=== PATIENT | male | born 1940 | race Caucasian/White ===

== ENCOUNTER 2018-08-08 02:18 | Outpatient (CLI) | payer MEDICARE, BC, SELFPAY ==
[2018-08-08 11:22] LABS: HCT 33.6 % (40.0-50.0); HGB 11.2 g/dL (13.5-17.5); Mean Corp. HGB Concentration 33.3 g/dL (32.0-36.0); Mean Corpuscular Hemoglobin 28.7 pg (27.0-33.0); Mean Corpuscular Volume 86.2 fL (80-95); Mean Platelet Volume 11.6 fL (8.0-11.0); Platelet Count 100 x1000/uL (130-400); RBC Distribution Width 15.6 % (11.8-14.1); White Blood Cell Count 5.95 k/cumm (4.4-10.8)
[2018-08-08 11:34] LABS: ALT 35 U/L (12-78); AST 30 U/L (15-37); Albumin 3.4 g/dL (3.4-5.0); Alkaline Phosphatase 99 U/L (46-116); Anion Gap 9.5 mmol/L (3-11); BUN 44 mg/dL (7-18); Bilirubin, Total 0.6 mg/dL (0.2-1.0); CO2 26.5 mmol/L (21.0-32.0); CREATININE 2.27 mg/dL (0.70-1.30); Calcium 8.6 mg/dL (8.5-10.1); Chloride 106 mmol/L (98-107); Estimated GFR 28.06 (mL/min/1.73m2); Glucose 82 mg/dL (70-100); Sodium 142 mmol/L (136-145); Total Protein 6.8 g/dL (6.4-8.2); Uric Acid 5.5 mg/dL (3.5-7.2)
[2018-08-08 12:38] LABS: Hemoglobin A1C 6.6 % (4.5-6.2)
== END 2018-08-08 02:38 ==
PROVIDERS: PCP Family Medicine; Visit Provider Family Medicine
DX: E11.21 Type 2 diabetes mellitus with diabetic nephropathy (principal); I10 Essential (primary) hypertension; I50.9 Heart failure, unspecified; N28.9 Disorder of kidney and ureter, unspecified
CPT/HCPCS: 36415; 80053; 85027; 83036; 84550

== ENCOUNTER 2018-09-04 11:22 | Outpatient (REF) | payer MEDICARE, BC, SELFPAY ==
[2018-09-05 11:04] LABS: Campylobacter PCR SEE COMMENTS; Salmonella PCR SEE COMMENTS; Shiga Toxin PCR SEE COMMENTS; Shigella/Enteroinvasive Ecoli SEE COMMENTS
== END 2018-09-04 11:42 ==
LOC: LBN 11:22
PROVIDERS: PCP Family Medicine; Visit Provider Family Medicine
DX: R19.7 Diarrhea, unspecified (principal)
CPT/HCPCS: 87329; 87505; 87324

== ENCOUNTER 2018-11-05 02:03 | Outpatient (CLI) | payer MEDICARE, BC, SELFPAY ==
[2018-11-05 11:22] LABS: HCT 34.2 % (40.0-50.0); Mean Corp. HGB Concentration 32.2 g/dL (32.0-36.0); Mean Corpuscular Hemoglobin 28.4 pg (27.0-33.0); Mean Corpuscular Volume 88.1 fL (80-95); Mean Platelet Volume 11.5 fL (8.0-11.0); RBC 3.88 m/cumm (4.50-6.00); RBC Distribution Width 15.9 % (11.8-14.1); White Blood Cell Count 6.28 k/cumm (4.4-10.8)
[2018-11-05 11:46] LABS: Hemoglobin A1C 6.6 % (4.5-6.2)
[2018-11-05 11:50] LABS: ALT 38 U/L (12-78); AST 25 U/L (15-37); Albumin 3.2 g/dL (3.4-5.0); Alkaline Phosphatase 88 U/L (46-116); Anion Gap 7.8 mmol/L (3-11); BUN 45 mg/dL (7-18); Bilirubin, Total 0.5 mg/dL (0.2-1.0); CO2 26.2 mmol/L (21.0-32.0); CREATININE 2.69 mg/dL (0.70-1.30); Calcium 8.3 mg/dL (8.5-10.1); Chloride 107 mmol/L (98-107); Estimated GFR 23.07 (mL/min/1.73m2); Glucose 111 mg/dL (70-100); Potassium 4.4 mmol/L (3.5-5.1); Sodium 141 mmol/L (136-145); Total Protein 6.3 g/dL (6.4-8.2)
[2018-11-05 12:04] LABS: Platelet Count 91 x1000/uL (130-400)
== END 2018-11-05 02:23 ==
PROVIDERS: PCP Family Medicine; Visit Provider Family Medicine
DX: E11.40 Type 2 diabetes mellitus with diabetic neuropathy, unspecified (principal); I10 Essential (primary) hypertension; N18.3 Chronic kidney disease, stage 3 (moderate); D64.9 Anemia, unspecified
CPT/HCPCS: 36415; 80053; 85027; 83036

== ENCOUNTER 2019-03-13 08:05 | Outpatient (CLI) | payer MEDICARE, BC, SELFPAY ==
[2019-03-13 11:24] LABS: HCT 34.2 % (40.0-50.0); HGB 11.5 g/dL (13.5-17.5); Mean Corp. HGB Concentration 33.6 g/dL (32.0-36.0); Mean Corpuscular Volume 86.4 fL (80-95); Mean Platelet Volume 11.5 fL (8.0-11.0); Platelet Count 114 x1000/uL (130-400); RBC 3.96 m/cumm (4.50-6.00); RBC Distribution Width 15.6 % (11.8-14.1); White Blood Cell Count 6.47 k/cumm (4.4-10.8)
[2019-03-13 11:35] LABS: Hemoglobin A1C 6.6 % (4.5-6.2)
[2019-03-13 11:38] LABS: ALT 34 U/L (12-78); AST 29 U/L (15-37); Albumin 3.6 g/dL (3.4-5.0); Alkaline Phosphatase 104 U/L (46-116); Anion Gap 10.9 mmol/L (3-11); BUN 54 mg/dL (7-18); Bilirubin, Total 0.6 mg/dL (0.2-1.0); CO2 26.1 mmol/L (21.0-32.0); CREATININE 2.74 mg/dL (0.70-1.30); Calcium 8.7 mg/dL (8.5-10.1); Chloride 105 mmol/L (98-107); Estimated GFR 22.52 (mL/min/1.73m2); Glucose 158 mg/dL (70-100); Potassium 4.5 mmol/L (3.5-5.1); Sodium 142 mmol/L (136-145); Total Protein 6.5 g/dL (6.4-8.2)
== END 2019-03-13 08:25 ==
PROVIDERS: PCP Family Medicine; Visit Provider Family Medicine
DX: E11.40 Type 2 diabetes mellitus with diabetic neuropathy, unspecified (principal); E11.9 Type 2 diabetes mellitus without complications; K31.89 Other diseases of stomach and duodenum; K76.6 Portal hypertension
CPT/HCPCS: 36415; 80053; 85027; 83036

== ENCOUNTER 2019-03-18 00:55 | Outpatient (CLI) | payer MEDICARE, BC, SELFPAY ==
--- NOTE | 2019-03-18 10:23 | DI.RAD_ITS ---
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 The lungs are clear. The mediastinal structures and pleura appear intact. CONCLUSION: Normal chest.
== END 2019-03-18 01:15 ==
PROVIDERS: PCP Family Medicine; Visit Provider Family Medicine
DX: I27.20 Pulmonary hypertension, unspecified (principal); I85.00 Esophageal varices without bleeding
CPT/HCPCS: 71046

== ENCOUNTER 2019-04-01 08:38 | Outpatient (CLI) | payer MEDICARE, BC, SELFPAY ==
[2019-04-01 13:03] LABS: ALT 33 U/L (12-78); AST 25 U/L (15-37); Albumin 3.2 g/dL (3.4-5.0); Alkaline Phosphatase 101 U/L (46-116); Anion Gap 10.6 mmol/L (3-11); BUN 48 mg/dL (7-18); Bilirubin, Total 0.5 mg/dL (0.2-1.0); CO2 25.4 mmol/L (21.0-32.0); CREATININE 2.79 mg/dL (0.70-1.30); Calcium 8.2 mg/dL (8.5-10.1); Chloride 107 mmol/L (98-107); Estimated GFR 22.06 (mL/min/1.73m2); Glucose 178 mg/dL (70-100); Potassium 4.6 mmol/L (3.5-5.1); Sodium 143 mmol/L (136-145)
== END 2019-04-01 08:58 ==
PROVIDERS: PCP Family Medicine; Visit Provider Family Medicine
DX: N28.9 Disorder of kidney and ureter, unspecified (principal); N18.4 Chronic kidney disease, stage 4 (severe)
CPT/HCPCS: 36415; 80053

== ENCOUNTER 2019-05-25 02:00 | Outpatient (CLI) | payer MEDICARE, BC, SELFPAY ==
[2019-05-25 11:02] LABS: Hemoglobin A1C 6.8 % (4.5-6.2)
== END 2019-05-25 02:20 ==
PROVIDERS: PCP Family Medicine; Visit Provider Family Medicine
DX: E11.40 Type 2 diabetes mellitus with diabetic neuropathy, unspecified (principal)
CPT/HCPCS: 36415; 83036

== ENCOUNTER 2019-06-20 14:21 | Emergency (ER) | payer MEDICARE, BC, SELFPAY ==
[2019-06-20] VITALS (19 sets, daily range): BP systolic 161–190; BP diastolic 68–134; PULSE 70–89; RESP 14–26; TEMP 36.5–37.1; O2SAT 98–100
--- NOTE | 2019-06-20 14:31 | DI.CT_ITS ---
EXAM: CT CHEST/ABD/PEL WO CLINICAL HISTORY: abd pain, r/o acute abd process/AAA. TECHNIQUE: A noncontrast enhanced examination was performed. COMPARISON: CHEST ABD PELVIS WO CONTRAST from 02/24/2017 FINDINGS: Chest: No infiltrates are demonstrated in the lungs. Small regions of bibasilar atelectasis are dem onstrated. There is no evidence of a pneumothorax. There is a small bilateral pleural effusion. The heart is not enlarged. Coronary artery calcification is identified. Note is made of calcification i n the aortic valve annulus. There is no evidence of a pericardial effusion. There is a 16 mm hypode nse nodule in the right thyroid lobe. No acute bony abnormality is seen. The soft tissues are unrem arkable. There is no evidence of an aortic aneurysm. There is no evidence of lymphadenopathy. ABDOMEN AND PELVIS : The exam reveals a nodular appearing liver, consistent with cirrhosis. The patient is status post ch olecystectomy. There is no evidence of ductal dilatation. Pancreas is unremarkable. There is a sim ple cyst in the left kidney. There is no evidence of a laceration or perinephric hemorrhage. There are no obstructing stones. There is no evidence of hydronephrosis. There is no evidence of bowel ob struction or mucosal thickening. There is nothing to suggest an acute appendix. The bladder is unremarkable. The reproductive organs as visualized are unremarkable. There is no michela dence of free air or free fluid in the intraperitoneal space. No acute bony abnormality is seen. The soft tissues are unremarkable. There is no evidence of an aortic aneurysm. There is no evidence of lymphadenopathy. . IMPRESSION: CHEST: Small bilateral pleural effusions are demonstrated. There is no evidence of a pulmonary contusion. Th ere is no evidence of a mediastinal hematoma. There is no evidence of an acute fracture. ABDOMEN AND PELVIS: There is no evidence of visceral trauma on this noncontrast enhanced examination. There is no evidenc e of an acute fracture. There are findings consistent with cirrhosis and splenomegaly.
--- NOTE | 2019-06-20 14:38 | DI.CT_ITS ---
EXAM: CT HEAD CERVICAL SPINE WO CLINICAL HISTORY: blurry vision, headache, r/o acute cva. TECHNIQUE: The exam was performed according to the usual protocol without contrast enhancement. COMPARISON: HEAD WITHOUT CONTRAST from 03/09/2017 FINDINGS: HEAD: There is no evidence of an intra or extra-axial hemorrhage. There is no evidence of a mass or edema. The isabel-white matter differentiation is well maintained. The ventricles are unremarkable. There i s no skull fracture. The soft tissues are unremarkable. As visualized, no acute sinus abnormalities are identified. There is no evidence of a mastoid effusion. CERVICAL SPINE: The CT examination of the cervical spine reveals straightening of the normal cervical lordosis with f usion of the bodies of C5 through C7 demonstrated. Degenerative changes are identified at C2-C3 and C 3-C4. The prevertebral soft tissues are intact. IMPRESSION: HEAD: No evidence of an acute intracranial abnormality. CERVICAL SPINE: No evidence of an acute fracture or subluxation.
--- NOTE | 2019-06-20 14:40 | W.ED.GENAD ---
Discharge Plan Disposition Patient Disposition: HOME Condition: Improving Discharge Details Chief Complaint: GenMedical Clinical Impression: Neck pain, Leg pain, Abdominal pain Primary Care Provider: Ailyn Ha ED Provider: Nandini Meyers Home Meds and New Rx's Prescriptions: New lidocaine [Lidoderm] 5 % adhesive patch,medicated 1 patch TP DAILY Qty: 15 RF: 0 methocarbamol [Robaxin-750] 750 mg tablet 750 mg PO QID PRN (Reason: muscle spasm) Qty: 14 RF: 0 Continued carvedilol 25 mg tablet 12.5 mg PO BID Qty: 90 RF: 5 losartan 25 mg tablet 25 mg PO DAILY RF: 0 triamcinolone acetonide 0.1 % ointment 1 applic TP BID Qty: 80 RF: 4 hydromorphone [Dilaudid] 2 mg tablet 2 mg PO BID MDD 2 PRN (Reason: pain) Qty: 60 RF: 0 TEST STRIPS 1 EACH strip 1 strip Miscellaneous QID Qty: 300 RF: 4 (DME) blood-glucose meter 1 EACH misc 1 ea Miscellaneous AC & HS Qty: 1 RF: 0 aspirin 81 MG tablet,delayed release (DR/EC) 81 mg PO DAILY Qty: 100 RF: 12 cyanocobalamin (vitamin B-12) 3,000 MCG lozenge 3,000 mcg Sublingual DAILY RF: 0 (DME) lancets 1 EACH misc 1 ea Miscellaneous TID Qty: 400 RF: 12 (DME) lancing device with lancets [OneTouch Delica Lanc Device] 1 EACH kit 1 ea Miscellaneous AC ans HS Qty: 400 RF: 11 atorvastatin [Lipitor] 80 MG tablet 80 mg PO DAILY Qty: 90 RF: 12 clonidine HCl 0.1 MG tablet 0.1 mg PO BID Qty: 180 RF: 12 hydralazine 25 MG tablet 25 mg PO TID Qty: 270 RF: 12 gabapentin 600 mg tablet 600 mg PO Q4H Qty: 270 RF: 12 finasteride [Proscar] 5 mg tablet 5 mg PO DAILY Qty: 90 RF: 4 isosorbide mononitrate 60 mg tablet extended release 24 hr 120 mg PO DAILY Qty: 90 RF: 12 furosemide [Lasix] 40 mg tablet 80 mg PO DAILY Qty: 180 RF: 12 allopurinol 100 mg tablet 100 mg PO BID Qty: 180 RF: 4 tamsulosin [Flomax] 0.4 mg capsule 0.4 mg PO DAILY Qty: 90 RF: 4 Lantus Solostar U-100 Insulin 100 unit/mL (3 mL) insulin pen 60 unit Sub-Q BID Qty: 105 RF: 12 insulin lispro [Humalog KwikPen Insulin] 100 unit/mL insulin pen 14 - 20 unit Sub-Q AC & HS Qty: 60 RF: 6 (DME) Blood Glucose Test strip 1 ea Miscellaneous AC Qty: 100 RF: 11 (DME) lancets [OneTouch Delica Lancets] 33 gauge misc 1 ea Miscellaneous AC & HS Qty: 100 RF: 11 nitroglycerin [Nitrostat] 0.4 mg tablet, sublingual 0.4 mg Sublingual PRN Qty: 25 RF: 3 (DME) pen needle, diabetic 31 gauge x 1/3 needle 1 ea Sub-Q 6 timed day and prn Qty: 600 RF: 4 acyclovir 800 mg tablet 800 mg PO .COMPLEX Qty: 35 RF: 0 Vitamin B-6 50 MG capsule 50 mg PO DAILY RF: 0 acetaminophen [Tylenol] 325 MG tablet 325 - 650 mg PO Q4H PRN PRNRF: 0 albuterol sulfate [Ventolin HFA] 60 PUFF/INH HFA aerosol inhaler 2 puff Inhalation Q4H PRNRF: 0 (DME) OptiChamber Advantage 1 EACH spacer 1 ea Miscellaneous DIRECTED RF: 0 Discharge Instructions Instructions: Abdominal Pain (ED), Leg Pain (ED), Neck Pain (ED) Additional Instructions: Take your pain medications that you have at home as needed and directed. Stop taking the acyclovir. Valtrex was called into the pharn Take the muscle relaxers and Lidoderm patch as needed and directed. Follow-up with your primary care doctor this week for reevaluation. Return to the emergency department if you develop any worsening or new concerning symptoms. Discharge Data Discharge Date/Time-TO BE ENTERED AT DEPARTURE: 06/20/19 17:45 Discharge Physician: Nandini Meyers Medical Decision Making 3615 -- 79-year-old male with multiple medical problems including diabetes, aortic stenosis, coronary artery disease, hyperlipidemia, hypertension, subdural hematoma presents with sudden onset of neck pain, blurry vision, abdominal pain that started 1 hour ago while sitting at home. 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 Blood pressure hypertensive. 160/100s. EKG notes a rate of 81, sinus with T wave inversion in lateral leads without acute ischemic changes and not significantly change compared to previous but with significant artifact. Abdomen soft but diffusely tender. He appears significantly uncomfortable. Differential diagnosis includes AAA rupture, dissection, ACS, pneumonia, likely abnormality, arrhythmia. Will place an IV, give small bolus IV fluids, check screening labs, CT head, neck and chest abdomen pelvis. Due to chronic kidney disease we will hold on IV contrast. 1745 -- Patient feels much better after morphine. Labs and imaging reviewed and no significant acute findings. He has a history of chronic kidney disease which is near baseline. BNP 1223. Urinalysis negative for infection. CT head negative. CT cervical spine notes chronic degenerative disc disease. He is moving all of his extremities and has no focal deficits. CT chest notes small bilateral pleural effusions, CT abdomen and pelvis notes a normal caliber aorta without any other acute findings. Discussed with patient that due to his wide range of symptoms, difficult to determine the exact etiology. Upon review of acyclovir, this could possibly be a contributing factor to his range of symptoms. He has a history of chronic neck pain and left leg pain but states this became much worse today. Patient states he feels good to go home. A Lidoderm patch was placed to his neck and he was also given a dose of Robaxin. He has taken Valtrex before without any reaction. A prescription for Valtrex was called into [facility] in [place]. He was advised to stop the acyclovir and if symptoms return, to fill the Valtrex. He is advised to follow-up with his primary care doctor and to return to the ER with any concerns. Medical Records Medical records reviewed: Yes I reviewed the patient's medical records. Lab Data Lab results reviewed: Yes I reviewed the patient's lab results. Labs: Laboratory Tests Range/Units 06/20/19 06/20/19 06/20/19 14:30 14:30 14:30 WBC (4.4-10.8) k/cumm 6.32 RBC (4.50-6.00) m/cumm 3.44 L Hgb (13.5-17.5) g/dL 10.2 L Hct (40.0-50.0) % 29.5 L MCV (80-95) fL 85.8 MCH (27.0-33.0) pg 29.7 MCHC (32.0-36.0) g/dL 34.6 RDW (11.8-14.1) % 15.5 H Plt Count (130-400) x1000/uL 103 L MPV (8.0-11.0) fL 10.7 Immature Gran % 0.3 Neutrophils % 73.3 Lymphocytes % 17.2 Monocytes % 7.0 Eosinophils % 1.7 Basophils % 0.5 Absolute Neutrophils (1.2-6.7) k/cumm 4.63 Absolute Lymphocytes (1.2-3.4) k/cumm 1.09 L Absolute Monocytes (0.11-0.7) k/cumm 0.44 Absolute Eosinophils (0.0-0.7) k/cumm 0.11 Absolute Basophils (0.0-0.2) k/cumm 0.03 Sodium (136-145) mmol/L 140 Potassium (3.5-5.1) mmol/L 3.9 Chloride (98-107) mmol/L 106 Carbon Dioxide (21.0-32.0) mmol/L 23.2 Anion Gap (3-11) mmol/L 10.8 BUN (7-18) mg/dL 51 H Creatinine (0.70-1.30) mg/dL 2.91 H Estimated GFR/1.73 m2 (mL/min/1.73m2) 21.01 Glucose (70-100) mg/dL 189 H Calcium (8.5-10.1) mg/dL 7.8 L Magnesium (1.8-2.4) mg/dL 1.3 L Total Bilirubin (0.2-1.0) mg/dL 0.6 AST (15-37) U/L 23 ALT (16-63) U/L 32 Alkaline Phosphatase (46-116) U/L 95 Troponin I (0.00-0.06) ng/mL < 0.05 NT-Pro-B Natriuret Pep ( - 299) pg/mL 1223 H Total Protein (6.4-8.2) g/dL 7.0 Albumin (3.4-5.0) g/dL 3.5 Lipase (73-393) U/L Urine Color (Yellow) Urine Clarity (Clear) Urine pH (5-8) Ur Specific [place] (1.005-1.025) Urine Protein (Negative) mg/dL Urine Ketones (Negative) mg/dL Urine Blood (Negative) Urine Nitrite (Negative) Urine Bilirubin (Negative) Urine Urobilinogen (Up TO 0.2) EU/dL Ur Leukocyte Esterase (Negative) Urine RBC (0-2) Urine WBC (0-5) HPF Ur Epithelial Cells (Negative) HPF Urine Crystals (Negative) HPF Urine Bacteria (Negative) HPF Urine Casts (Negative) LPF Urine Mucus (Negative) Urine Other (Negative) Ur Culture Indicated? Urine Glucose (Negative) mg/dL Range/Units 06/20/19 06/20/19 14:30 15:50 WBC (4.4-10.8) k/cumm RBC (4.50-6.00) m/cumm Hgb (13.5-17.5) g/dL Hct (40.0-50.0) % MCV (80-95) fL MCH (27.0-33.0) pg MCHC (32.0-36.0) g/dL RDW (11.8-14.1) % Plt Count (130-400) x1000/uL MPV (8.0-11.0) fL Immature Gran % Neutrophils % Lymphocytes % Monocytes % Eosinophils % Basophils % Absolute Neutrophils (1.2-6.7) k/cumm Absolute Lymphocytes (1.2-3.4) k/cumm Absolute Monocytes (0.11-0.7) k/cumm Absolute Eosinophils (0.0-0.7) k/cumm Absolute Basophils (0.0-0.2) k/cumm Sodium (136-145) mmol/L Potassium (3.5-5.1) mmol/L Chloride (98-107) mmol/L Carbon Dioxide (21.0-32.0) mmol/L Anion Gap (3-11) mmol/L BUN (7-18) mg/dL Creatinine (0.70-1.30) mg/dL Estimated GFR/1.73 m2 (mL/min/1.73m2) Glucose (70-100) mg/dL Calcium (8.5-10.1) mg/dL Magnesium (1.8-2.4) mg/dL Total Bilirubin (0.2-1.0) mg/dL AST (15-37) U/L ALT (16-63) U/L Alkaline Phosphatase (46-116) U/L Troponin I (0.00-0.06) ng/mL NT-Pro-B Natriuret Pep ( - 299) pg/mL Total Protein (6.4-8.2) g/dL Albumin (3.4-5.0) g/dL Lipase (73-393) U/L 239 Urine Color (Yellow) Yellow Urine Clarity (Clear) Clear Urine pH (5-8) 7.0 Ur Specific [place] (1.005-1.025) 1.020 Urine Protein (Negative) mg/dL 100 H Urine Ketones (Negative) mg/dL Negative Urine Blood (Negative) Trace-lysed H Urine Nitrite (Negative) Negative Urine Bilirubin (Negative) Negative Urine Urobilinogen (Up TO 0.2) EU/dL 0.2 Ur Leukocyte Esterase (Negative) Negative Urine RBC (0-2) 0-2 Urine WBC (0-5) HPF Negative Ur Epithelial Cells (Negative) HPF Rare Urine Crystals (Negative) HPF Negative Urine Bacteria (Negative) HPF Rare Urine Casts (Negative) LPF Negative Urine Mucus (Negative) Negative Urine Other (Negative) Negative Ur Culture Indicated? No Urine Glucose (Negative) mg/dL 100 ECG Data Attestation: I personally reviewed and interpreted this ECG (s) as follows: Interpretation: Rate of 81, sinus, first-degree block. T wave inversion in V5 and V6. [place] 266. No acute ST elevation or depression. HPI General Mode of arrival: ambulatory. Date/Time Provider Initiated Documentation: 06/20/19 14:31. Limitations to Documentation: no limitations. Information obtained by: patient. HPI Narrative: Patient is a 79-year-old male with a history of diabetes, CAD, hyperlipidemia, hypertension, subdural hematoma, chronic neck pain with history of cervical fusion, chronic left leg pain status post back surgery and peripheral neuropathy who presents with sudden onset of neck pain, left leg pain and abdominal pain that started while laying down taking a nap. He states he has had chronic back pain for years but states it became much worse while he was laying down. He denies any pain radiating to his bilateral arms. He also has a history of chronic left leg pain and neuropathy and states this became much worse 1 hour ago as well. He states he uses a cane for ambulation as needed. 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 He also states that he had blurry vision when his neck pain and left leg pain started but states is now resolved. He also admits to sharp periumbilical abdominal pain that started within the hour. He denies any vomiting, diarrhea or urinary symptoms. He denies any fever, chest pain, shortness of breath, headache or dizziness. He denies any recent injury. Related Data Home Medications Medication Instructions Recorded Confirmed blood-glucose meter #1 ea 01/10/16 05/26/19 Vitamin B-6 50 mg PO DAILY 02/24/17 06/20/19 acetaminophen [Tylenol] 325 - 650 mg PO Q4H PRN PRN tab 03/05/17 06/20/19 aspirin 81 mg PO DAILY #100 tab-cap 03/18/17 06/20/19 cyanocobalamin (vitamin B-12) 3,000 mcg SUBLINGUAL DAILY evin 10/15/17 06/20/19 lancets #400 ea 01/30/18 05/26/19 lancing device with lancets #400 kit 01/30/18 05/26/19 [OneTouch Delica Lanc Device] OptiChamber Advantage kit 03/11/18 05/26/19 albuterol sulfate [Ventolin HFA] 2 puff INHALATION Q4H PRN inh 03/11/18 06/20/19 atorvastatin [Lipitor] 80 mg PO DAILY #90 tab-cap 05/28/18 06/20/19 clonidine HCl 0.1 mg PO BID #180 tab-cap 05/28/18 06/20/19 hydralazine 25 mg PO TID #270 tab-cap 05/28/18 06/20/19 gabapentin 600 mg tablet 600 mg PO Q4H #270 tab-cap 08/06/18 06/20/19 triamcinolone acetonide 0.1 % 1 applic TP BID #80 gm 08/11/18 06/20/19 topical ointment finasteride 5 mg tablet 5 mg PO DAILY #90 tab-cap 08/14/18 06/20/19 isosorbide mononitrate 60 mg 120 mg PO DAILY #90 tab-cap 08/14/18 06/20/19 tablet,extended release 24 hr furosemide 40 mg tablet 80 mg PO DAILY #180 tab-cap 10/25/18 06/20/19 carvedilol 25 mg tablet 12.5 mg PO BID #90 tab-cap 11/11/18 06/20/19 allopurinol 100 mg tablet 100 mg PO BID #180 tab-cap 12/08/18 06/20/19 tamsulosin 0.4 mg capsule 0.4 mg PO DAILY #90 tab-cap 12/08/18 06/20/19 insulin glargine 100 unit/mL (3 60 unit SUB-Q BID #105 ml 01/27/19 06/20/19 mL) subcutaneous pen insulin lispro 100 unit/mL 14 - 20 unit SUB-Q AC & HS #60 ml 01/27/19 06/20/19 subcutaneous pen blood sugar diagnostic #100 strip 03/02/19 05/26/19 lancets 33 gauge #100 each 03/02/19 05/26/19 nitroglycerin 0.4 mg sublingual 0.4 mg SUBLINGUAL PRN #25 tab-cap 03/18/19 06/20/19 tablet losartan 25 mg tablet 25 mg PO DAILY 03/26/19 06/20/19 pen needle, diabetic 31 gauge x #600 ea 04/23/19 05/26/19/ hydromorphone 2 mg tablet 2 mg PO BID PRN #60 tab-cap MDD 2 05/26/19 06/20/19 acyclovir 800 mg tablet 800 mg PO .COMPLEX #35 tab 06/19/19 06/20/19 lidocaine [Lidoderm] 1 patch TP DAILY #15 each 06/20/19 methocarbamol [Robaxin-750] 750 mg PO QID PRN #14 tab 06/20/19 Previous Rx's Medication Instructions Recorded acetaminophen [Tylenol] 325 - 650 mg PO Q4H PRN PRN tab 03/05/17 lancets #400 ea 01/30/18 lancing device with lancets #400 kit 01/30/18 [OneTouch Delica Lanc Device] OptiChamber Advantage kit 03/11/18 albuterol sulfate [Ventolin HFA] 2 puff INHALATION Q4H PRN inh 03/11/18 atorvastatin [Lipitor] 80 mg PO DAILY #90 tab-cap 05/28/18 clonidine HCl 0.1 mg PO BID #180 tab-cap 05/28/18 hydralazine 25 mg PO TID #270 tab-cap 05/28/18 gabapentin 600 mg tablet 600 mg PO Q4H #270 tab-cap 08/06/18 triamcinolone acetonide 0.1 % 1 applic TP BID #80 gm 08/11/18 topical ointment finasteride 5 mg tablet 5 mg PO DAILY #90 tab-cap 08/14/18 isosorbide mononitrate 60 mg 120 mg PO DAILY #90 tab-cap 08/14/18 tablet,extended release 24 hr furosemide 40 mg tablet 80 mg PO DAILY #180 tab-cap 10/25/18 carvedilol 25 mg tablet 12.5 mg PO BID #90 tab-cap 11/11/18 allopurinol 100 mg tablet 100 mg PO BID #180 tab-cap 12/08/18 tamsulosin 0.4 mg capsule 0.4 mg PO DAILY #90 tab-cap 12/08/18 insulin glargine 100 unit/mL (3 60 unit SUB-Q BID #105 ml 01/27/19 mL) subcutaneous pen insulin lispro 100 unit/mL 14 - 20 unit SUB-Q AC & HS #60 ml 01/27/19 subcutaneous pen blood sugar diagnostic #100 strip 03/02/19 lancets 33 gauge #100 each 03/02/19 nitroglycerin 0.4 mg sublingual 0.4 mg SUBLINGUAL PRN #25 tab-cap 03/18/19 tablet pen needle, diabetic 31 gauge x #600 ea 04/23/19 1/3 hydromorphone 2 mg tablet 2 mg PO BID PRN #60 tab-cap MDD 2 05/26/19 acyclovir 800 mg tablet 800 mg PO .COMPLEX #35 tab 06/19/19 lidocaine [Lidoderm] 1 patch TP DAILY #15 each 06/20/19 methocarbamol [Robaxin-750] 750 mg PO QID PRN #14 tab 06/20/19 Allergies Allergy/AdvReac Type Severity Reaction Status Date / Time amlodipine Allergy Severe SOB, Chest Unverified 06/20/19 14:31 Pain niacin Allergy Intermediate HIVES Unverified 06/20/19 14:31 ciprofloxacin Allergy Mild SKIN RASH Unverified 06/20/19 14:31 Tetanus Vaccines and Toxoid Allergy Mild LARGE Unverified 06/20/19 14:31 [Tetanus Vaccines \E&E\ LOCAL Toxoid] REACTION nickel Allergy Unknown Unverified 06/20/19 14:31 indomethacin AdvReac Severe GI DISTRESS Unverified 06/20/19 14:31 General Stated Complaint: GenMedical EVELYN: 2 Review of Systems Constitutional Constitutional: Reports as per HPI, Denies chills and Denies fever(s) Eyes Eyes: Reports blurry vision ENT Ears, Nose, Mouth, and Throat: Denies dizziness, Reports neck pain, Denies sore throat and Denies throat swelling Cardiovascular Cardiovascular: Denies chest pain and Denies dyspnea Respiratory Respiratory: Denies cough and Denies dyspnea Gastrointestinal Gastrointestinal: Reports abdominal pain, Denies diarrhea and Denies vomiting Genitourinary Genitourinary: Denies hematuria and Denies dysuria Musculoskeletal Musculoskeletal: Denies back pain, Reports neck pain and Denies numbness Integumentary/Breasts Skin/Breast: Denies lesions and Denies rash Neurologic Neurologic: Denies dizziness, Denies focal weakness and Denies numbness Allergic/Immunologic Allergic/Immunologic: Denies throat swelling REPLACED BY [facility] Medical History Abdominal pain, generalized (Chronic 08/29/04) 2004-CT scan neg. U/S-fatty liver, enlarged spleen; EGD-heg. HPylori, neg. 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) Chronic hepatitis (Acute 11/03/12) Chronic pain disorder (Acute 08/30/15) CONTRACT 01/19/16 Chronic renal insufficiency, stage III (moderate) (Chronic 04/16/16) Cirrhosis of liver (Chronic 09/28/13) YAO-RELATED 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) Diabetes mellitus with neuropathy (Chronic 08/17/14) Diabetic polyneuropathy associated with type 2 diabetes mellitus (Chronic 03/05/16) Diabetic retinopathy (Chronic 02/14/15) 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) Esophageal varices without bleeding (Chronic 07/09/13) Frequent nosebleeds (Chronic 10/15/17) Gout (Chronic 05/20/12) History of bladder cancer (Acute 10/29/16) Hyperlipidemia (Chronic) Hypermetropia (Chronic 11/24/12) Hypertension (Chronic) Hypertensive retinopathy (Chronic 11/24/12) Incipient cataract (Chronic 11/24/12) Kidney disease (Chronic) renal insuff.; CREATININE 1.3 Knee pain (Chronic) LEFT Left hip pain (Chronic 12/27/16) Lumbago (Chronic) herniation by MRI; S/P discectomy L5; left leg pain continues/numbness Lumbosacral radiculopathy at L5 (Chronic 05/20/17) Microscopic hematuria (Chronic 10/29/16) Neck pain (Chronic) neck fusion C5-6-7; s/p fall on the ice with significant neck injury, paralysis for a short time; short term memory loss; decreased right arm strength Re-injured 02/13 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) Peripheral edema (Chronic 03/29/16) Polyp of colon (Chronic 08/29/99) hyperplastic polyp; per colonoscopy 2009-Tubular adenoma and hyperplastic polyp Portal hypertensive gastropathy (Chronic 07/09/13) Presbyopia (Chronic 11/24/12) Primary malignant neoplasm of bladder (Chronic 01/20/08) atypical urothelial cells on urine 01/05; S/P 2 OPERATIONS; VCG THERAPY Renal colic on right side (Chronic 12/25/13) Subdural hematoma (Chronic 02/24/17) Tear film insufficiency (Chronic 11/24/12) Thyroid nodule (Chronic 03/18/17) 1.6cm right Surgical History ACHILLOTENOTOMY 1988 LEFT 1998 RIGHT Bladder Surgery [address] VÁSQUEZ Cholecystectomy (08/05/12) Colonoscopy - MAC 08/09 DISC SURGERY () L5 [place]GD - [place]29[place] [facility] [place] [facility] [place]inal Fusion (~1992) C5, 6-7 Stent placement (~2007) X [address] JANICE KENDALL Family History Mother Myocardial infarction Father Stroke Sister Myocardial infarction Stroke Brother Myocardial infarction Brother No problems noted. Social History Smoking/Tobacco Use Status: Former Tobacco Use Drug use: Current Sobriety What type of physical activity do you participate in: none Do you feel safe in your relationship?: Yes Exam Const General: cooperative, uncomfortable and no acute distress HENMT Head: normal to inspection Face and sinus: normal facial exam Eyes General: appearance normal, both eyes and all related structures Pupils: PERRL EOM: EOM intact bilaterally Neck Neck: normal visual inspection and No submandibular swelling Lymphatic: no lymphadenopathy noted Chest Chest: normal inspection of the chest and no tenderness Resp Effort & Inspection: normal respiratory effort and able to speak in complete sentences Auscultation: clear to auscultation bilaterally Cardio Rate: regular rate Rhythm: regular rhythm GI Inspection: obesity Palpation: soft, not firm, not rigid and tender (throughout) Auscultation: hypoactive bowel sounds Skin General skin exam: no rashes or lesions noted Neuro General: alert, awake and oriented x3 Cranial Nerves: CN's II-XI intact bilaterally Cognition: normal cognition Speech: speech normal Motor: muscle tone normal throughout and strength 5/5 throughout Sensory Exam: no sensory deficits noted Extrem General: normal to inspection, full ROM, normal capillary refill, no calf tenderness bilaterally and no edema Psych Appearance: grossly normal Mental Status: mental status grossly normal Speech and Movement: speech and movement normal Affect: normal affect Course Vital Signs Vital signs: Vital Signs Temperature 98.8 F 06/20/19 14:26 Pulse 80 06/20/19 14:26 Respiratory Rate 23 06/20/19 14:26 Blood Pressure 190/83 H 06/20/19 14:26 Pulse Oximetry 99 06/20/19 14:26 Temperature 98.8 F 06/20/19 14:26 Temperature Source Skin 06/20/19 14:26 Pulse 80 06/20/19 14:26 Respiratory Rate 23 06/20/19 14:26 Respiratory Effort Labored 06/20/19 14:26 Blood Pressure 190/83 H 06/20/19 14:26 Blood Pressure Position Supine 06/20/19 14:26 Pulse Oximetry 99 06/20/19 14:26 Oxygen Delivery Method Room Air 06/20/19 14:26 Oxygen Flow Rate 0 06/20/19 14:26
[2019-06-20 14:43] LABS: Abs Immature Grans 0.02 k/cumm (0.0-0.09); Absolute Basophil Count 0.03 k/cumm (0.0-0.2); Absolute Eosinophil Count 0.11 k/cumm (0.0-0.7); Absolute Lymphocyte Count 1.09 k/cumm (1.2-3.4); Absolute Monocyte Count 0.44 k/cumm (0.11-0.7); Absolute Neutrophil Count 4.63 k/cumm (1.2-6.7); Basophils % 0.5; Eosinophils % 1.7; HCT 29.5 % (40.0-50.0); HGB 10.2 g/dL (13.5-17.5); Immature Grans % 0.3; Lymphocytes % 17.2; Mean Corp. HGB Concentration 34.6 g/dL (32.0-36.0); Mean Corpuscular Hemoglobin 29.7 pg (27.0-33.0); Mean Corpuscular Volume 85.8 fL (80-95); Mean Platelet Volume 10.7 fL (8.0-11.0); Neutrophils % 73.3; Platelet Count 103 x1000/uL (130-400); RBC 3.44 m/cumm (4.50-6.00); RBC Distribution Width 15.5 % (11.8-14.1); White Blood Cell Count 6.32 k/cumm (4.4-10.8)
[2019-06-20 14:54] LABS: Lipase 239 U/L (73-393)
[2019-06-20 15:00] LABS: ALT 32 U/L (16-63); AST 23 U/L (15-37); Albumin 3.5 g/dL (3.4-5.0); Alkaline Phosphatase 95 U/L (46-116); Anion Gap 10.8 mmol/L (3-11); BUN 51 mg/dL (7-18); Bilirubin, Total 0.6 mg/dL (0.2-1.0); CO2 23.2 mmol/L (21.0-32.0); CREATININE 2.91 mg/dL (0.70-1.30); Calcium 7.8 mg/dL (8.5-10.1); Chloride 106 mmol/L (98-107); Estimated GFR 21.01 (mL/min/1.73m2); Glucose 189 mg/dL (70-100); Magnesium 1.3 mg/dL (1.8-2.4); Potassium 3.9 mmol/L (3.5-5.1); Sodium 140 mmol/L (136-145)
[2019-06-20 15:01] LABS: Troponin I < 0.05 ng/mL (0.00-0.06)
[2019-06-20 15:06] LABS: NT-proBNP 1223 pg/mL
[2019-06-20] MEDS: Normal Saline 250 ML IV (15:17)
--- NOTE | 2019-06-20 15:36 | DI.VRAD_ITS ---
PROCEDURE INFORMATION: Exam: CT Head Without Contrast Exam date and time: 06/20/2019 2:49 PM Clinical history: 79 years old, male; Other: Blurry vision, headache, R/O acute CVA TECHNIQUE: Imaging protocol: Computed tomography of the head without contrast. Radiation optimization: All CT scans at this facility use at least one of these dose optimization techniques: automated exposure control; mA and/or kV adjustment per patient size (includes targeted exams where dose is matched to clinical indication); or iterative reconstruction. COMPARISON: CT HEAD WITHOUT CONTRAST 03/09/2017 2:40 AM FINDINGS: Brain: Age-related atrophy and chronic white matter ischemic changes, with no evidence of an acute intracranial abnormality. Mendiola-white differentiation is maintained. No evidence of acute territorial infarction. No mass effect or midline shift. No hemorrhage. Ventricles: Unremarkable. No hydrocephalus. Bones/joints: Unremarkable. No acute fracture. Sinuses: Unremarkable as visualized. No acute sinusitis. Mastoid air cells: Unremarkable as visualized. No mastoid effusion. Soft tissues: Unremarkable. Vasculature: Bilateral intracranial arterial wall calcifications. IMPRESSION: No acute findings. Specifically, no evidence for hemorrhagic or ischemic infarction. PROCEDURE INFORMATION: Exam: CT Cervical Spine Without Contrast Exam date and time: 06/20/2019 2:49 PM Clinical history: 79 years old, male; Other: Blurry vision, headache, R/O acute CVA TECHNIQUE: Imaging protocol: Computed tomography images of the cervical spine without contrast. Radiation optimization: All CT scans at this facility use at least one of these dose optimization techniques: automated exposure control; mA and/or kV adjustment per patient size (includes targeted exams where dose is matched to clinical indication); or iterative reconstruction. COMPARISON: CT HEAD WITHOUT CONTRAST 03/09/2017 2:40 AM FINDINGS: Vertebrae: No fracture or dislocation. 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 Bony fusion of the C2/3 left facets. Bony fusion of the C5-C7 vertebral bodies. Discs/Spinal canal/Neural foramina: Multilevel degenerative disc disease and facet hypertrophy. C3-4 is the most significantly affected level. Annular disc bulge with uncal vertebral spurring and right paracentral disc protrusion (which completely effaces the right lateral third of the central canal) combined with facet hypertrophy and ligamentum flavum thickening produce: Moderately-severe central canal and bilateral neural foraminal stenosis. C6-7 is the second most significantly affected level with a moderately-severe central canal stenosis and moderate bilateral neural foraminal stenosis. Less significant stenosis at the other cervical levels. Soft tissues: Unremarkable. Lungs: Lung apices are normal. IMPRESSION: Multilevel degenerative disc disease and facet hypertrophy. C3-4 is the most significantly affected level with moderately-severe central canal and bilateral neural foraminal stenosis. Dictated and Authenticated by: Jacque Winchester MD. Ordering:TIAN Delatorre MD
--- NOTE | 2019-06-20 15:56 | DI.VRAD_ITS ---
PROCEDURE INFORMATION: Exam: CT Chest Without Contrast Exam date and time: 06/20/2019 2:35 PM Clinical history: 79 years old, male; Other: Abd pain, R/O aute abd process/aaa TECHNIQUE: Imaging protocol: Computed tomography of the chest without contrast. Radiation optimization: All CT scans at this facility use at least one of these dose optimization techniques: automated exposure control; mA and/or kV adjustment per patient size (includes targeted exams where dose is matched to clinical indication); or iterative reconstruction. COMPARISON: CT Chest without contrast 04/07/2018 FINDINGS: Thyroid: Stable 1 cm hypodense nodule in the lower right lobe of the thyroid gland. Lungs: See Pleural Space Finding. Pleural space: Small low density bilateral pleural effusions with minimal adjacent atelectasis. No suspicious infiltrate. No consolidation. Heart: Heart is normal in size. Aortic valve and coronary artery calcifications. No pericardial effusion. Pulmonary arteries: The pulmonary arteries demonstrate stable mild central enlargement, consistent with mild pulmonary hypertension. Aorta: Aorta is normal caliber with scattered wall calcifications. Lymph nodes: Unremarkable. No enlarged lymph nodes. Bones/joints: Multilevel degenerative changes. No acute bony abnormality. Soft tissues: Unremarkable. IMPRESSION: 1. Small bilateral pleural effusions. 2. Coronary artery disease. 3. Stable 1 cm hypodense nodule in the lower right lobe of the thyroid gland. PROCEDURE INFORMATION: Exam: CT Abdomen and Pelvis Without Contrast Exam date and time: 06/20/2019 2:35 PM Clinical history: 79 years old, male; Other: Abd pain, R/O aute abd process/aaa TECHNIQUE: Imaging protocol: Computed tomography of the abdomen and pelvis without contrast. Radiation optimization: All CT scans at this facility use at least one of these dose optimization techniques: automated exposure control; mA and/or kV adjustment per patient size (includes targeted exams where dose is matched to clinical indication); or iterative reconstruction. COMPARISON: CT ABD PELVIS WO CONTRAST 05/11/2014 2:32 PM FINDINGS: Liver: Liver is enlarged, but less so, measuring 19 cm in length on today's exam (22 cm on the previous exam). Stable subcentimeter cyst in the central liver (axial series 2 image 65). Gallbladder and bile ducts: Cholecystectomy. Pancreas: Unremarkable. No ductal dilation. Spleen: Unremarkable.No splenomegaly. Adrenals: Unremarkable. No mass. Kidneys and ureters: Very mild right renal peripelvic fat stranding. Nonobstructive punctate calcifications in both kidneys. Stable small left renal cyst. No hydronephrosis, hydroureter or discrete intraureteral calcification bilaterally. Stomach and bowel: Unremarkable. No obstruction. No mucosal thickening. Appendix: No evidence of appendicitis. Intraperitoneal space: Unremarkable. No free air. No fluid collection. Vasculature: Aorta is normal caliber with diffuse wall calcifications. Lymph nodes: Unremarkable. No enlarged lymph nodes. Bladder: Unremarkable as visualized. Reproductive: Enlarged prostate gland. Bones/joints: Multilevel degenerative changes. No acute bony abnormality. Soft tissues: Unremarkable. IMPRESSION: 1. Aorta is normal caliber with diffuse wall calcifications. 2. Very mild right renal peripelvic fat stranding. This is nonspecific and may represent infection or inflammation. Please, correlate with urinalysis. 3. Nonobstructive punctate calcifications in both kidneys. 4. Decreased enlargement of the liver. Dictated and Authenticated by: Jacque Winchester MD. Ordering:TIAN Delatorre MD
[2019-06-20 16:23] LABS: Bilirubin Negative (Negative); Blood Trace-lysed (Negative); Clarity Clear (Clear); Glucose 100 mg/dL (Negative); Ketones Negative (Negative); Leukocyte Esterase Negative (Negative); Nitrite Negative (Negative); Urobilinogen 0.2 EU/dL (Up TO 0.2)
[2019-06-20 16:29] LABS: Bacteria Rare HPF (Negative); C & S Indicated? No; Casts Negative LPF (Negative); Crystals Negative HPF (Negative); Epithelial Cells Rare HPF (Negative); Mucus Negative (Negative); Other Cells Negative (Negative); RBC 0-2 (0-2); WBC Negative HPF (0-5)
[2019-06-20] MEDS: Methocarbamol 500 MG TAB PO (17:29)
[2019-06-20] MEDS: Lidocaine 5% Patch 1 PATCH TP (17:29)
== END 2019-06-20 17:45 | disposition home or self-care (01) ==
PROVIDERS: Emergency Provider Physician Assistant; PCP Family Medicine
DX: M54.2 Cervicalgia (principal); R10.9 Unspecified abdominal pain; N18.9 Chronic kidney disease, unspecified; J90 Pleural effusion, not elsewhere classified; I12.9 Hypertensive chronic kidney disease with stage 1 through stage 4 chronic kidney disease, or unspecified chronic kidney disease; E11.22 Type 2 diabetes mellitus with diabetic chronic kidney disease; Z79.4 Long term (current) use of insulin
CPT/HCPCS: 36415; 71250; 80053; 83690; 93005; 96361; 96374; 99285; 70450; 72125; 74176; 81003; 81015; 83735; 83880; 84484; 85025; 93010

== ENCOUNTER 2019-07-24 02:21 | Outpatient (RCR) | payer MEDICARE, BC, SELFPAY ==
[2019-07-17] VITALS (7 sets, daily range): BP systolic 143–169; BP diastolic 66–77; PULSE 66–71; RESP 18–19; TEMP 36.4–36.5; O2SAT 96–99
[2019-07-17] MEDS: IRON SUCROSE COMPLEX 300 MG in Normal Saline 250 ML 176.667 MG IVPB (12:18)
[2019-07-17] MEDS: Normal Saline Flush 10 ML SYR IVP (12:18)
[2019-07-24] MEDS: Normal Saline Flush 10 ML SYR IVP (12:19)
[2019-07-24] MEDS: IRON SUCROSE COMPLEX 300 MG in Normal Saline 250 ML 176.667 MG IVPB (12:19)
== END 2019-07-30 23:59 | disposition home or self-care (01) ==
LOC: INF 02:21
PROVIDERS: PCP Family Medicine; Visit Provider Family Medicine
DX: N18.4 Chronic kidney disease, stage 4 (severe) (principal); D63.1 Anemia in chronic kidney disease; D50.9 Iron deficiency anemia, unspecified
CPT/HCPCS: 96365; 96366; J1756

== ENCOUNTER 2019-07-31 01:23 | Outpatient (RCR) | payer MEDICARE, BC, SELFPAY ==
[2019-07-31] MEDS: IRON SUCROSE COMPLEX 300 MG in Normal Saline 250 ML 176.667 MG IVPB (12:06)
[2019-07-31] MEDS: Normal Saline Flush 10 ML SYR IVP (12:07)
== END 2019-08-29 23:59 | disposition home or self-care (01) ==
LOC: INF 01:23
PROVIDERS: PCP Family Medicine; Visit Provider Family Medicine
DX: N18.4 Chronic kidney disease, stage 4 (severe) (principal); D63.1 Anemia in chronic kidney disease; D50.9 Iron deficiency anemia, unspecified
CPT/HCPCS: 96365; 96366; J1756

== ENCOUNTER 2019-08-25 17:51 | Observation (INO) | payer MEDICARE, BC, SELFPAY ==
[2019-08-25] VITALS (80 sets, daily range): BP systolic 149–217; BP diastolic 55–132; PULSE 67–94; RESP 10–32; TEMP 36.3–38.6; O2SAT 84–100
--- NOTE | 2019-08-25 17:56 | DI.RAD_ITS ---
EXAM: XR PORTABLE CHEST AP CLINICAL HISTORY: pain TECHNIQUE: The study was performed according to the usual protocol. COMPARISON: XR CHEST 2V PA LATERAL from 03/18/2019 FINDINGS: There are changes of COPD and pulmonary scarring. No gross interval change in appearance in compariso n with prior studies including March 18. Slight prominence of pulmonary interstitial markings may be related in part to portable technique. Cardiac size within normal limits. No pleural effusion identi fied on this frontal film. IMPRESSION: No evidence of acute change.
[2019-08-25 18:06] LABS: Abs Immature Grans 0.03 k/cumm (0.0-0.09); Absolute Basophil Count 0.03 k/cumm (0.0-0.2); Absolute Eosinophil Count 0.12 k/cumm (0.0-0.7); Absolute Lymphocyte Count 1.02 k/cumm (1.2-3.4); Absolute Monocyte Count 0.41 k/cumm (0.11-0.7); Absolute Neutrophil Count 4.88 k/cumm (1.2-6.7); Basophils % 0.5; Eosinophils % 1.8; HCT 34.8 % (40.0-50.0); HGB 11.4 g/dL (13.5-17.5); Immature Grans % 0.5; Lymphocytes % 15.7; Mean Corp. HGB Concentration 32.8 g/dL (32.0-36.0); Mean Corpuscular Hemoglobin 29.5 pg (27.0-33.0); Mean Corpuscular Volume 90.2 fL (80-95); Monocytes % 6.3; Neutrophils % 75.2; Platelet Count 112 x1000/uL (130-400); RBC 3.86 m/cumm (4.50-6.00); RBC Distribution Width 16.1 % (11.8-14.1); White Blood Cell Count 6.49 k/cumm (4.4-10.8)
[2019-08-25] MEDS: Furosemide 100 MG/10 ML VIAL 80 MG IVP (18:07)
[2019-08-25] MEDS: Aspirin 81 MG CHEW 243 MG CH (18:11)
--- NOTE | 2019-08-25 18:18 | ED.GENADUL_ITS ---
Discharge Plan Disposition Patient Disposition: [facility] INPATIENT Condition: Good Discharge Details Chief Complaint: Chest Pain Clinical Impression: Acute pulmonary edema Admit Date/Time: 08/25/19 20:07 Admit Provider: Juan Carlos Small Attending Provider: Juan Carlos Small Primary Care Provider: Ailyn Ha ED Provider: Viky Doe Discharge Data Discharge Date/Time-TO BE ENTERED AT DEPARTURE: 08/25/19 21:00 Medical Decision Making Is a 79-year-old patient with a complex medical history including history of NE requiring 4 stents, stage IV kidney disease, diabetes, history of subdural hematoma, chronic pain disorders, anemia, pleural effusions, bladder cancer, hypertension, hyperlipidemia, portal hypertension who currently takes aspirin, Lasix, carvedilol, insulin management and pain management. Patient presents af ter an episode of chest pain lasting approximately 5 minutes then rested, napped and awoke with difficulty breathing. Patient presents to the emergency room complaining of difficulty breathing with no associated chest pain. Mild lightheadedness. Patient denies associated headache. No recent falls or trauma. Patient's initial vital signs noted a oxygen saturation in the high 80s, oxygen probe was changed and patient O2 was noted in the 90s. Patient is notably hypertensive. Initial BP 217/93 and notably tachypneic. Nasal cannula placed at time of arrival soon thereafter switched to BiPAP. Initial EKG reveals regular rhythm with a heart rate of 81. Nonspecific ST segment changes. This was reviewed with Cordell Live. Patient was initially evaluated with Cordell Live. Ultrasound of the bedside by Dr. Live reveal B- lines diffusely through the lung almendarez Lasix 80 mg ordered. Aspirin [address] Live's order nitroglycerin drip at 50mcg which was increased to 60mcg/min improving BP to systolic of 180mmhg Pt appears improved on bipap. X-ray reveals chronic COPD pattern but no focal pulmonary consolidations or pulmonary edema 1903 - Repeat EKG reveals no dynamic changes. Again regular rate and rhythm, rate 71. No significant change compared to initial EKG. This was reviewed with Dr. Live. Initial troponin is negative. Patient has no associated leukocytosis, no worsening anemia, BNP 1428 - increased from 1223. Spoke with hospitalist. Will evaluate patient in the ER HPI General Date/Time Provider Initiated Documentation: 08/25/19 17:55 . HPI Narrative: This is a 79-year-old patient who presents to the emergency room today for comp laints of difficulty breathing. Patient reports this afternoon at approximately 3:00 he was sitting in a chair at home after having a long day of appointments and errands. Patient reports he had onset of chest pain which was substernal. Patient reports the pain lasted approximately 5 minutes and gradually resolved on its own. Patient took no medications to resolve pain. Patient reports after his episode of chest pain he went to take a nap in the afternoon. Patient did take a Dilaudid tablet due to chronic right leg pain prior to his nap. Patient woke up at approximately 430 to 5:00 and noted onset of difficulty breathing with no associated chest or back pain. Patient does report mild lightheadedness but no headache. Denies any numbness or tingling of extremities. Denies any nausea or vomiting. Denies abdominal pain. Patient has a complex medical history. He did take a single aspirin this morning and his other daily medications. Related Data Home Medications Medication Instructions Recorded Confirmed Vitamin B-6 50 mg PO DAILY 02/24/17 08/25/19 acetaminophen [Tylenol] 325 - 650 mg PO Q4H PRN PRN tab 03/05/17 08/25/19 aspirin 81 mg PO DAILY #100 tab-cap 03/18/17 08/25/19 cyanocobalamin (vitamin B-12) 3,000 mcg SUBLINGUAL DAILY evin 10/15/17 08/25/19 OptiChamber Advantage kit 03/11/18 05/26/19 albuterol sulfate [Ventolin HFA] 2 puff INHALATION Q4H PRN inh 03/11/18 08/25/19 triamcinolone acetonide 0.1 % 1 applic TP BID #80 gm 08/11/18 08/25/19 topical ointment furosemide 40 mg tablet 80 mg PO DAILY #180 tab-cap 10/25/18 08/25/19 carvedilol 25 mg tablet 12.5 mg PO BID #90 tab-cap 11/11/18 08/25/19 allopurinol 100 mg tablet 100 mg PO BID #180 tab-cap 12/08/18 08/25/19 tamsulosin 0.4 mg capsule 0.4 mg PO DAILY #90 tab-cap 12/08/18 08/25/19 insulin lispro 100 unit/mL 14 - 20 unit SUB-Q AC & HS #60 ml 01/27/19 08/25/19 subcutaneous pen nitroglycerin 0.4 mg sublingual 0.4 mg SUBLINGUAL PRN #25 tab-cap 03/18/19 08/25/19 tablet losartan 25 mg tablet 25 mg PO DAILY 03/26/19 08/25/19 pen needle, diabetic 31 gauge x #600 ea 04/23/19 05/26/1910/02 acyclovir 800 mg tablet 800 mg PO .COMPLEX #35 tab 06/19/19 08/25/19 lidocaine [Lidoderm] 1 patch TP DAILY #15 each 06/20/19 08/25/19 methocarbamol [Robaxin-750] 750 mg PO QID PRN #14 tab 06/20/19 08/25/19 clonidine HCl 0.1 mg tablet 0.1 mg PO BID #180 tab-cap 06/29/19 08/25/19 finasteride 5 mg tablet 5 mg PO DAILY #90 tab-cap 06/29/19 08/25/19 gabapentin 600 mg tablet 600 mg PO Q4H #270 tab-cap 06/29/19 08/25/19 hydralazine 25 mg tablet 25 mg PO TID #270 tab-cap 06/29/19 08/25/19 hydromorphone 2 mg tablet 2 mg PO BID PRN #60 tab-cap MDD 2 07/29/19 08/25/19 atorvastatin 80 mg tablet 80 mg PO DAILY #90 tab-cap 08/11/19 08/25/19 blood sugar diagnostic #400 strip 08/13/19 isosorbide mononitrate 60 mg 120 mg PO DAILY #90 tab-cap 08/13/19 08/25/19 tablet,extended release 24 hr lancets 33 gauge #400 each 08/13/19 lancing device with lancets #400 kit 08/13/19 Lantus Solostar U-100 Insulin 60 unit SUB-Q DAILY 08/25/19 08/25/19 Previous Rx's Medication Instructions Recorded acetaminophen [Tylenol] 325 - 650 mg PO Q4H PRN PRN tab 03/05/17 OptiChamber Advantage kit 03/11/18 albuterol sulfate [Ventolin HFA] 2 puff INHALATION Q4H PRN inh 03/11/18 triamcinolone acetonide 0.1 % 1 applic TP BID #80 gm 08/11/18 topical ointment furosemide 40 mg tablet 80 mg PO DAILY #180 tab-cap 10/25/18 carvedilol 25 mg tablet 12.5 mg PO BID #90 tab-cap 11/11/18 allopurinol 100 mg tablet 100 mg PO BID #180 tab-cap 12/08/18 tamsulosin 0.4 mg capsule 0.4 mg PO DAILY #90 tab-cap 12/08/18 insulin lispro 100 unit/mL 14 - 20 unit SUB-Q AC & HS #60 ml 01/27/19 subcutaneous pen nitroglycerin 0.4 mg sublingual 0.4 mg SUBLINGUAL PRN #25 tab-cap 03/18/19 tablet pen needle, diabetic 31 gauge x #600 ea 04/23/1910/02 acyclovir 800 mg tablet 800 mg PO .COMPLEX #35 tab 06/19/19 lidocaine [Lidoderm] 1 patch TP DAILY #15 each 06/20/19 methocarbamol [Robaxin-750] 750 mg PO QID PRN #14 tab 06/20/19 clonidine HCl 0.1 mg tablet 0.1 mg PO BID #180 tab-cap 06/29/19 finasteride 5 mg tablet 5 mg PO DAILY #90 tab-cap 06/29/19 gabapentin 600 mg tablet 600 mg PO Q4H #270 tab-cap 06/29/19 hydralazine 25 mg tablet 25 mg PO TID #270 tab-cap 06/29/19 hydromorphone 2 mg tablet 2 mg PO BID PRN #60 tab-cap MDD 2 07/29/19 atorvastatin 80 mg tablet 80 mg PO DAILY #90 tab-cap 08/11/19 blood sugar diagnostic #400 strip 08/13/19 isosorbide mononitrate 60 mg 120 mg PO DAILY #90 tab-cap 08/13/19 tablet,extended release 24 hr lancets 33 gauge #400 each 08/13/19 lancing device with lancets #400 kit 08/13/19 Allergies Allergy/AdvReac Type Severity Reaction Status Date / Time amlodipine Allergy Severe SOB, Chest Unverified 08/25/19 18:01 Pain niacin Allergy Intermediate HIVES Unverified 08/25/19 18:01 ciprofloxacin Allergy Mild SKIN RASH Unverified 08/25/19 18:01 Tetanus Vaccines and Toxoid Allergy Mild LARGE Unverified 08/25/19 18:01 [Tetanus Vaccines \E&E\ LOCAL Toxoid] REACTION nickel Allergy Unknown Unverified 08/25/19 18:01 indomethacin AdvReac Severe GI DISTRESS Unverified 08/25/19 18:01 General Stated Complaint: Chest Pain EVELYN: 2 Review of Systems All systems reviewed & are unremarkable except as noted in HPI and below Constitutional Constitutional: Denies chills, Denies fever(s) and Denies headache(s) ENT Ears, Nose, Mouth, and Throat: Denies headache(s) Cardiovascular Cardiovascular: Reports chest pain (Resolved) and Reports dyspnea Respiratory Respiratory: Denies cough and Reports dyspnea Gastrointestinal Gastrointestinal: Denies abdominal pain, Denies nausea and Denies vomiting Neurologic Neurologic: Denies headache(s) [facility] Medical History Abdominal pain, generalized (Chronic 08/29/04) 2005-CT scan neg. U/S-fatty liver, enlarged spleen; EGD-heg. HPylori, neg. 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) Chronic hepatitis (Acute 11/03/12) Chronic pain disorder (Acute 08/30/15) CONTRACT 01/19/16 Chronic renal insufficiency, stage III (moderate) (Chronic 04/16/16) Cirrhosis of liver (Chronic 09/28/13) YAO-RELATED 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) Diabetes mellitus with neuropathy (Chronic 08/17/14) Diabetic polyneuropathy associated with type 2 diabetes mellitus (Chronic 03/05/16) Diabetic retinopathy (Chronic 02/14/15) 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) Esophageal varices without bleeding (Chronic 07/09/13) Frequent nosebleeds (Chronic 10/15/17) Gout (Chronic 05/20/12) History of bladder cancer (Acute 10/29/16) Hyperlipidemia (Chronic) Hypermetropia (Chronic 11/24/12) Hypertension (Chronic) Hypertensive retinopathy (Chronic 11/24/12) Incipient cataract (Chronic 11/24/12) Kidney disease (Chronic) renal insuff.; CREATININE 1.3 Knee pain (Chronic) LEFT Left hip pain (Chronic 12/27/16) Lumbago (Chronic) herniation by MRI; S/P discectomy L5; left leg pain continues/numbness Lumbosacral radiculopathy at L5 (Chronic 05/20/17) Microscopic hematuria (Chronic 10/29/16) Neck pain (Chronic) neck fusion C5-6-7; s/p fall on the ice with significant neck injury, paralysis for a short time; short term memory loss; decreased right arm st rength Re-injured 02/13 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) Peripheral edema (Chronic 03/29/16) Polyp of colon (Chronic 08/29/99) hyperplastic polyp; per colonoscopy 2009-Tubular adenoma and hyperplastic polyp Portal hypertensive gastropathy (Chronic 07/09/13) Presbyopia (Chronic 11/24/12) Primary malignant neoplasm of bladder (Chronic 01/20/08) atypical urothelial cells on urine 01/05; S/P 2 OPERATIONS; VCG THERAPY Renal colic on right side (Chronic 12/25/13) Subdural hematoma (Chronic 02/24/17) Tear film insufficiency (Chronic 11/24/12) Thyroid nodule (Chronic 03/18/17) 1.6cm right Surgical History ACHILLOTENOTOMY 1988 LEFT 1998 RIGHT Bladder Surgery [address] VÁSQUEZ Cholecystectomy (08/05/12) Colonoscopy - MAC 08/09 DISC SURGERY (~1996) L5 EGD - MAC 06/29/13 [facility] [place]; 07/19/14 [facility] [place] Spinal Fusion (~1992) C5, 6-7 Stent placement (~2007) X [address] JANICE KENDALL Family History Mother Myocardial infarction Father Stroke Sister Myocardial infarction Stroke Brother Myocardial infarction Brother No problems noted. Social History Smoking/Tobacco Use Status: Former Tobacco Use Drug use: Current Sobriety What type of physical activity do you participate in: none Do you feel safe in your relationship?: Yes Exam Narrative Exam Narrative: CONST: Awake and alert. EYES: General normal appearance. Alignment normal. Eyelids normal. Conjunctiva normal. Sclera normal. PERRL. NECK: Normal visual inspection. FROM. No lymphadenopathy. Trachea midline. No Midline tenderness. CHEST: Normal insepection of the chest. RESP: Increased respiratory effort. No retractions. Rales noted diffusely. CARDIO: No JVD. Normal PMI. Regular Rate. Regular Rhythm. Normal peripheral pulses. GI: Normal inspection of abdomen. No distension. Soft. Nontender. Bowel sounds present in all 4 quadrants. No rebound. No gaurding. MUSCULOSKELETAL: Bilateral distal edema which is symmetrical. Pitting2+. Course Vital Signs Vital signs: Vital Signs Temperature 36.9 C 08/25/19 17:55 Pulse 89 08/25/19 17:55 Respiratory Rate 27 H 08/25/19 17:55 Blood Pressure 217/93 H 08/25/19 17:55 Pulse Oximetry 84 L 08/25/19 17:55 Temperature 36.9 C 08/25/19 17:55 Temperature Source Skin 08/25/19 17:55 Pulse 76 08/25/19 18:13 Pulse 77 08/25/19 18:13 Respiratory Rate 21 08/25/19 18:13 Respiratory Effort Labored 08/25/19 18:11 Respiratory Depth Normal 08/25/19 18:11 Respiratory Pattern Normal 08/25/19 18:11 Blood Pressure 205/79 H 08/25/19 18:13 Blood Pressure Mean 111 08/25/19 18:13 Pulse Oximetry 100 08/25/19 18:13 Oxygen Delivery Method Room Air 08/25/19 17:55 Oxygen Flow Rate 0 08/25/19 17:55 Pain Level 0 08/25/19 18:11 Lab/Test Results Lab/Test Results: Laboratory Tests Range/Units 08/25/19 17:59 WBC (4.4-10.8) k/cumm 6.49 RBC (4.50-6.00) m/cumm 3.86 L Hgb (13.5-17.5) g/dL 11.4 L Hct (40.0-50.0) % 34.8 L MCV (80-95) fL 90.2 MCH (27.0-33.0) pg 29.5 MCHC (32.0-36.0) g/dL 32.8 RDW (11.8-14.1) % 16.1 H Plt Count (130-400) x1000/uL 112 L MPV (8.0-11.0) fL 11.0 Immature Gran % 0.5 Neutrophils % 75.2 Lymphocytes % 15.7 Monocytes % 6.3 Eosinophils % 1.8 Basophils % 0.5 Absolute Neutrophils (1.2-6.7) k/cumm 4.88 Absolute Lymphocytes (1.2-3.4) k/cumm 1.02 L Absolute Monocytes (0.11-0.7) k/cumm 0.41 Absolute Eosinophils (0.0-0.7) k/cumm 0.12 Absolute Basophils (0.0-0.2) k/cumm 0.03
--- NOTE | 2019-08-25 18:30 | DI.VRAD_ITS ---
PROCEDURE INFORMATION: Exam: XR Chest, 1 View Exam date and time: 08/25/2019 5:58 PM Age: 79 years old Clinical history: Chest pain TECHNIQUE: Imaging protocol: XR of the chest Views: 1 view. COMPARISON: CR XR CHEST 2V PA LATERAL 03/18/2019 10:30 AM FINDINGS: Lungs: Hyperinflation and interstitial changes consistent with COPD, without focal consolidation or mass. Pleural space: Unremarkable. No pleural effusion. No pneumothorax. Heart/Mediastinum: Unremarkable. No cardiomegaly. Bones/joints: Unremarkable. IMPRESSION: No acute abnormality. Dictated and Authenticated by: Fabiola Sam MD. Ordering:SLY Salmon MD
[2019-08-25] MEDS: Gabapentin 300 MG CAP 600 MG PO (18:37)
[2019-08-25 18:51] LABS: ALT 41 U/L (16-63); AST 31 U/L (15-37); Albumin 4.1 g/dL (3.4-5.0); Alkaline Phosphatase 118 U/L (46-116); Anion Gap 13.5 mmol/L (3-11); BUN 52 mg/dL (7-18); Bilirubin, Total 0.3 mg/dL (0.2-1.0); CO2 25.5 mmol/L (21.0-32.0); CREATININE 3.16 mg/dL (0.70-1.30); Calcium 8.7 mg/dL (8.5-10.1); Chloride 107 mmol/L (98-107); Estimated GFR 19.11 (mL/min/1.73m2); Glucose 169 mg/dL (74-106); Magnesium 1.6 mg/dL (1.8-2.4); Potassium 4.5 mmol/L (3.5-5.1); Sodium 146 mmol/L (136-145); Total Protein 7.4 g/dL (6.4-8.2)
[2019-08-25 18:52] LABS: Troponin I < 0.05 ng/Ml (<0.06)
[2019-08-25 18:52] LABS: NT-proBNP 1428 pg/mL (<300)
--- NOTE | 2019-08-25 19:29 | NUR.NOTE ---
Hospitalist in room, pt taken off bipap. respiratory in room .
--- NOTE | 2019-08-25 19:41 | NUR.NOTE ---
Stood at side of bed to void. Approx 500mL CYU out. Continues to deny pain. RA sat 93-95% Placed on 2L O2 per MD Small. Up to 97% Pt reports continued pain in left foot d/t previous surgery.
--- NOTE | 2019-08-25 19:52 | HPE_ITS ---
Date of service: 08/25/19 Time of Service: 19:52 Assessment and Plan Assessment and plan (1) CHF (congestive heart failure): Status: Chronic Assessment and plan: I think the most coherent diagnosis at this point would be flash pulmonary edema, possibly on the basis of transient ischemia. Will monitor response to diuresis, continue NTG for now (will try to wean) and await serial troponins. Regardless patient is asymptomatic at present so I would not anticipate need for urgent cardiac intervention, but if enzymes positive will likely need repeat cath.Will otherwise continue usual meds as is for now. ADs reviewed and patient requests DNR. History of Present Illness History of Present Illness Chief Complaint: SOB Narrative: 79 male with multiple problems, including CAD and CHF. Reports 15 minutes of CP this afternoon, resolved spontaneously, went to take a nap, then awakened by SOB. In ER initial findings of note for tachypnea, hypertension and report of bibasilar rales. CXR reported as normal though to my read it clearly shows mild-moderate pulmonary edema. EKG with lateeral TW inversion, but unchanged from baseline, andd troponin 1 negative. pateint put on Bipap, NTG qtt @60 mcg and given Lasix 80 IVP. Patient has just now voided 500 cc clear urine. States he is feeling essentially back to baseline. Review of Systems All systems reviewed & are unremarkable except as noted in HPI and below PFSH Medical History Abdominal pain, generalized (Chronic 08/29/04) 2004-CT scan neg. U/S-fatty liver, enlarged spleen; EGD-heg. HPylori, neg. endomesial Ab Actinic keratosis (Chronic) Allergic rhinitis (Chronic) seasonal allergies Anemia (Chronic) mild low Hct; thrombocytopenia; eosinphilia Bilateral pleural effusion (Chronic 07/22/17) [facility] 07/09/17 Bronchitis (Chronic 01/31/15) CAD (coronary artery disease) (Chronic) S/P STENTING, NO RECURRENT ANGINAL SYMPTOMS WITH NEGATIVE NUCLEAR STRESS TEST 2011, LVEF 53% -12-25-2013 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) Chronic hepatitis (Acute 11/03/12) Chronic pain disorder (Acute 08/30/15) CONTRACT 01/19/16 Chronic renal insufficiency, stage III (moderate) (Chronic 04/16/16) Cirrhosis of liver (Chronic 09/28/13) YAO-RELATED 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) Diabetes mellitus with neuropathy (Chronic 08/17/14) Diabetic polyneuropathy associated with type 2 diabetes mellitus (Chronic 03/05/16) Diabetic retinopathy (Chronic 02/14/15) 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) Esophageal varices without bleeding (Chronic 07/09/13) Frequent nosebleeds (Chronic 10/15/17) Gout (Chronic 05/20/12) History of bladder cancer (Acute 10/29/16) Hyperlipidemia (Chronic) Hypermetropia (Chronic 11/24/12) Hypertension (Chronic) Hypertensive retinopathy (Chronic 11/24/12) Incipient cataract (Chronic 11/24/12) Kidney disease (Chronic) renal insuff.; CREATININE 1.3 Knee pain (Chronic) LEFT Left hip pain (Chronic 12/27/16) Lumbago (Chronic) herniation by MRI; S/P discectomy L5; left leg pain continues/numbness Lumbosacral radiculopathy at L5 (Chronic 05/20/17) Microscopic hematuria (Chronic 10/29/16) Neck pain (Chronic) neck fusion C5-6-7; s/p fall on the ice with significant neck injury, paralysis for a short time; short term memory loss; decreased right arm strength Re-injured 02/13 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) Peripheral edema (Chronic 03/29/16) Polyp of colon (Chronic 08/29/99) hyperplastic polyp; per colonoscopy 2009-Tubular adenoma and hyperplastic polyp Portal hypertensive gastropathy (Chronic 07/09/13) Presbyopia (Chronic 11/24/12) Primary malignant neoplasm of bladder (Chronic 01/20/08) atypical urothelial cells on urine 01/05; S/P 2 OPERATIONS; VCG THERAPY Renal colic on right side (Chronic 12/25/13) Subdural hematoma (Chronic 02/24/17) Tear film insufficiency (Chronic 11/24/12) Thyroid nodule (Chronic 03/18/17) 1.6cm right Surgical History ACHILLOTENOTOMY 1989 LEFT 1998 RIGHT Bladder Surgery [address] VÁSQUEZ Cholecystectomy (08/05/12) Colonoscopy - MAC 08/09 DISC SURGERY (~1996) L5 EGD - MAC 06/29/13 [facility]; 07/19/14 [facility] Spinal Fusion (~1992) C5, 6-7 Stent placement (~2007) X [address] JANICE KENDALL Family History Mother Myocardial infarction Father Stroke Sister Myocardial infarction Stroke Brother Myocardial infarction Brother No problems noted. Social History Smoking/Tobacco Use Status: Former Tobacco Use Drug use: Current Sobriety What type of physical activity do you participate in: none Do you feel safe in your relationship?: Yes Meds Home Medications and Allergies Home Medications Medication Instructions Recorded Confirmed Type Vitamin B-6 50 mg PO DAILY 02/24/17 08/25/19 History acetaminophen [Tylenol] 325 - 650 mg PO Q4H PRN PRN tab 03/05/17 08/25/19 Rx aspirin 81 mg PO DAILY #100 tab-cap 03/18/17 08/25/19 History cyanocobalamin (vitamin B-12) 3,000 mcg SUBLINGUAL DAILY evin 10/15/17 08/25/19 History OptiChamber Advantage kit 03/11/18 05/26/19 Rx albuterol sulfate [Ventolin HFA] 2 puff INHALATION Q4H PRN inh 03/11/18 08/25/19 Rx triamcinolone acetonide 0.1 % 1 applic TP BID #80 gm 08/11/18 08/25/19 Rx topical ointment furosemide 40 mg tablet 80 mg PO DAILY #180 tab-cap 10/25/18 08/25/19 Rx carvedilol 25 mg tablet 12.5 mg PO BID #90 tab-cap 11/11/18 08/25/19 Rx allopurinol 100 mg tablet 100 mg PO BID #180 tab-cap 12/08/18 08/25/19 Rx tamsulosin 0.4 mg capsule 0.4 mg PO DAILY #90 tab-cap 12/08/18 08/25/19 Rx insulin lispro 100 unit/mL 14 - 20 unit SUB-Q AC & HS #60 ml 01/27/19 08/25/19 Rx subcutaneous pen nitroglycerin 0.4 mg sublingual 0.4 mg SUBLINGUAL PRN #25 tab-cap 03/18/19 1 10/25/18 Rx tablet losartan 25 mg tablet 25 mg PO DAILY 03/26/19 08/25/19 History pen needle, diabetic 31 gauge x #600 ea 04/23/19 05/26/19 Rx 1/3 acyclovir 800 mg tablet 800 mg PO .COMPLEX #35 tab 06/19/19 08/25/19 Rx lidocaine [Lidoderm] 1 patch TP DAILY #15 each 06/20/19 08/25/19 Rx methocarbamol [Robaxin-750] 750 mg PO QID PRN #14 tab 06/20/19 08/25/19 Rx clonidine HCl 0.1 mg tablet 0.1 mg PO BID #180 tab-cap 06/29/19 08/25/19 Rx finasteride 5 mg tablet 5 mg PO DAILY #90 tab-cap 06/29/19 08/25/19 Rx gabapentin 600 mg tablet 600 mg PO Q4H #270 tab-cap 06/29/19 08/25/19 Rx hydralazine 25 mg tablet 25 mg PO TID #270 tab-cap 06/29/19 08/25/19 Rx hydromorphone 2 mg tablet 2 mg PO BID PRN #60 tab-cap MDD 2 07/29/19 08/25/19 Rx atorvastatin 80 mg tablet 80 mg PO DAILY #90 tab-cap 08/11/19 08/25/19 Rx blood sugar diagnostic #400 strip 08/13/19 Rx isosorbide mononitrate 60 mg 120 mg PO DAILY #90 tab-cap 08/13/19 08/25/19 Rx tablet,extended release 24 hr lancets 33 gauge #400 each 08/13/19 Rx lancing device with lancets #400 kit 08/13/19 Rx Lantus Solostar U-100 Insulin 60 unit SUB-Q DAILY 08/25/19 08/25/19 History Allergies Allergy/AdvReac Type Severity Reaction Status Date / Time amlodipine Allergy Severe SOB, Chest Unverified 08/25/19 18:01 Pain niacin Allergy Intermediate HIVES Unverified 08/25/19 18:01 ciprofloxacin Allergy Mild SKIN RASH Unverified 08/25/19 18:01 Tetanus Vaccines and Toxoid Allergy Mild LARGE Unverified 08/25/19 18:01 [Tetanus Vaccines \E&E\ LOCAL Toxoid] REACTION nickel Allergy Unknown Unverified 08/25/19 18:01 indomethacin AdvReac Severe GI DISTRESS Unverified 08/25/19 18:01 Exam Narrative Exam Narrative: 163/66, 76,16, 98% (2L), 36.9. HEENT AT/NC; neck supple; lungs few rales and wheeze left base; heart RRR with diffuse 2/6 systolic murmur; abdomen soft and NT; /rectal deferred; extremities: 1+ bilateral pedal edema, pulse 2+/=; Results CXR: cephalization c/w CHF; EKG with lateral TW inversions, similar to prior (latter is poor quality, but readable in this regard). Other results as below. Labs Result diagrams: 08/25/19 17:59 08/25/19 17:59 Labs: Laboratory Results - last 24 hr 08/25/19 08/25/19 08/25/19 17:55 17:59 17:59 WBC 6.49 RBC 3.86 L Hgb 11.4 L Hct 34.8 L MCV 90.2 MCH 29.5 MCHC 32.8 RDW 16.1 H Plt Count 112 L MPV 11.0 Immature Gran % 0.5 Neutrophils % 75.2 Lymphocytes % 15.7 Monocytes % 6.3 Eosinophils % 1.8 Basophils % 0.5 Absolute Neutrophils 4.88 Absolute Lymphocytes 1.02 L Absolute Monocytes 0.41 Absolute Eosinophils 0.12 Absolute Basophils 0.03 Sodium 146 H Potassium 4.5 Chloride 107 Carbon Dioxide 25.5 Anion Gap 13.5 H BUN 52 H Creatinine 3.16 H Estimated GFR/1.73 m2 19.11 Glucose 169 H Calcium 8.7 Magnesium 1.6 L Total Bilirubin 0.3 AST 31 ALT 41 Alkaline Phosphatase 118 H Troponin I < 0.05 NT-Pro-B Natriuret Pep 1428 Total Protein 7.4 Albumin 4.1 Last Vital Signs Temp 36.9 C 08/25/19 17:55 Pulse 76 08/25/19 19:43 Resp 16 08/25/19 19:43 BP 163/66 H 08/25/19 19:43 Pulse Ox 98 08/25/19 19:43
--- NOTE | 2019-08-25 21:02 | NUR.NOTE ---
Transported to ICU by Alissa JARRETT, with all belongings.
[2019-08-25 21:19] LABS: Troponin I < 0.05 ng/Ml (<0.06)
[2019-08-25] MEDS: Gabapentin 600 MG TAB PO (23:00)
[2019-08-25] MEDS: Acetaminophen 325 MG TAB PO (23:01)
[2019-08-25] MEDS: Methocarbamol 750 MG TAB PO (23:08)
[2019-08-26] VITALS (72 sets, daily range): BP systolic 118–190; BP diastolic 49–73; PULSE 63–77; RESP 12–25; TEMP 36.2–36.8; O2SAT 88–98
[2019-08-26] MEDS: HYDROmorphone 2 MG TAB PO ×3 (02:33→17:52)
[2019-08-26] MEDS: Tamsulosin 0.4 MG CAPCR PO ×2 (02:35→21:21)
[2019-08-26] MEDS: Atorvastatin 40 MG TAB 80 MG PO ×2 (02:35→21:21)
[2019-08-26] MEDS: MAGNESIUM SULFATE 2 GM/50 ML BAG IV (02:36)
[2019-08-26] MEDS: Gabapentin 600 MG TAB PO ×4 (05:32→20:39)
[2019-08-26] MEDS: Normal Saline Flush 10 ML SYR IVP ×2 (05:33→22:59)
[2019-08-26 07:22] LABS: Troponin I < 0.05 ng/Ml (<0.06)
[2019-08-26 07:55] LABS: Abs Immature Grans 0.03 k/cumm (0.0-0.09); Absolute Basophil Count 0.03 k/cumm (0.0-0.2); Absolute Eosinophil Count 0.11 k/cumm (0.0-0.7); Absolute Lymphocyte Count 1.38 k/cumm (1.2-3.4); Absolute Monocyte Count 0.47 k/cumm (0.11-0.7); Absolute Neutrophil Count 3.94 k/cumm (1.2-6.7); Basophils % 0.5; Eosinophils % 1.8; HGB 9.7 g/dL (13.5-17.5); Immature Grans % 0.5; Lymphocytes % 23.2; Mean Corp. HGB Concentration 33.4 g/dL (32.0-36.0); Mean Corpuscular Hemoglobin 30.1 pg (27.0-33.0); Mean Corpuscular Volume 90.1 fL (80-95); Mean Platelet Volume 11.3 fL (8.0-11.0); Monocytes % 7.9; Neutrophils % 66.1; Platelet Count 102 x1000/uL (130-400); RBC 3.22 m/cumm (4.50-6.00); RBC Distribution Width 15.8 % (11.8-14.1); White Blood Cell Count 5.96 k/cumm (4.4-10.8)
[2019-08-26 07:57] LABS: Anion Gap 11.7 mmol/L (3-11); BUN 49 mg/dL (7-18); CO2 23.3 mmol/L (21.0-32.0); CREATININE 3.11 mg/dL (0.70-1.30); Calcium 8.1 mg/dL (8.5-10.1); Chloride 109 mmol/L (98-107); Estimated GFR 19.46 (mL/min/1.73m2); Glucose 81 mg/dL (74-106); Magnesium 1.8 mg/dL (1.8-2.4); Potassium 4.4 mmol/L (3.5-5.1); Sodium 144 mmol/L (136-145)
[2019-08-26] MEDS: cloNIDine 0.1 MG TAB PO ×2 (08:44→19:11)
[2019-08-26] MEDS: Carvedilol 25 MG TAB PO ×2 (08:45→19:12)
[2019-08-26] MEDS: Aspirin E.C. 81 MG TABEC PO (08:45)
[2019-08-26] MEDS: Finasteride 5 MG TAB PO (08:46)
[2019-08-26] MEDS: hydrALAZINE 25 MG TAB PO ×3 (08:46→19:12)
[2019-08-26] MEDS: Allopurinol 100 MG TAB PO ×2 (08:47→19:10)
[2019-08-26] MEDS: Furosemide 40 MG TAB 80 MG PO (08:47)
[2019-08-26] MEDS: Insulin Glargine 300 UNITS/3 ML PEN 60 UNITS SC ×2 (08:49→21:20)
--- NOTE | 2019-08-26 09:00 | DI.US_ITS ---
APPROVED REPORT EXAM: Comprehensive 2D, Doppler, and color-flow Echocardiogram Patient Location: [facility] Front Office Manager: HANY Sanchez (AE) Rhythm: NSR Indications: flash pulm edema. hx CAD uncontrolled HTN Conclusion Left Ventricle : The left ventricle is normal size. Mild left ventricular hypertrophy. Left ventric ular systolic function is normal. There is normal LV segmental wall motion. There is grade 2 diastoli c dysfunction. LVEF is etimated to be 65-70%. Right Ventricle : Right ventricle is dilated. The right ventricular systolic function appears normal. Atria : Left atrium is mildly dilated. Right atrium is moderately dilated. Aortic Valve : Aortic valve is probably trileaflet. Moderate aortic valve sclerosis. No aortic regurg itation is present. Moderate aortic stenosis (Mean gradient 22mmHg, ELOISE 1.16cm2). Mitral Valve : Mitral valve leaflets are thickened. There is mitral annular calcification. Mild to mo derate mitral regurgitation. No evidence of significant mitral valve stenosis. Tricuspid Valve : The tricuspid valve is normal in structure. Great Vessels : The IVC is dilated but collapses greater than 50%. RVSP is estimated to be between 3 4-40 mmHg but this may be underestimated due to poor TR signal.. Compared to echocardiogram dated 01/06/2018, the aortic valve mean gradient has increased from 13 to 22 mmHg. There are no other significant changes. Wall motion Left Ventricle The left ventricle is normal size. Left ventricular systolic function is normal. Mild left ventricula r hypertrophy. There is normal LV segmental wall motion. There is grade 2 diastolic dysfunction. LVEF is etimated to be 65-70%. Right Ventricle Right ventricle is dilated. The right ventricular systolic function appears normal. Atria Left atrium is mildly dilated. Right atrium is moderately dilated. Aortic Valve Aortic valve is probably trileaflet. Moderate aortic valve sclerosis. Moderate aortic stenosis (Mean gradient 22mmHg, ELOISE 1.16cm2). No aortic regurgitation is present. Mitral Valve Mitral valve leaflets are thickened. There is mitral annular calcification. No evidence of significan t mitral valve stenosis. Mild to moderate mitral regurgitation. Tricuspid Valve The tricuspid valve is normal in structure. Mild tricuspid regurgitation. Pulmonic Valve Pulmonic valve is not well visualized. Great Vessels Aortic root is mildly dilated. The aortic root size is normal. The ascending aorta size is normal. Th e IVC is dilated but collapses greater than 50%. RVSP is estimated to be between 34-40 mmHg. Pericardium There is no pericardial effusion. There is a right pleural effusion identified, possible left as well . 2D Dimensions IVSd 1.25 cm M: 0.6-1.2 LV EDV A2C 79.30 mL PWd 1.10 cm M: 0.6 - 1.2 LV EDV A4C 71.70 mL LVDd 4.80 cm M: 4.2 - 5.8 LA Volume Index A2C 33.93 mL/m2 LVDs 2.95 cm M: 2.5 - 4.0 LA Volume Index A4C 41.60 mL/m2 Aortic Root 3.60 cm M: 3.1 - 3.7 LA Volume Index Biplane 39.62 mL/m2 RA Area A4C 26.87 cm2 LA Area A4C 23.72 cm2 LVOT 2.00 cm (M/F) 1.5-2.5 LA Area A2C 22.59 cm2 Ascending Aorta 3.13 cm M: 2.6 - 3.4 EF AP4 70.85 % LVEF (Teich) 67.50 % EF AP2 68.85 % LVEF (Yoo's) 69.51 % M: 52 - 72 EF BP 69.51 % LV Volume 56.87 mL M: 62 - 150 LV Volume Index 27.87 mL/m2 M: 34 - 74 FS 37.50 % LV Diastology E/A Ratio 1.7 MED E' 0.07 (>0.07 m/s) LV E/e MED 23.00 (<14) LAT E' 0.06 (>0.1 m/s) LV E/e LAT 25.70 (<14) Aortic Valve LVOT Area 3.29 cm2 LVOT Peak Rogelio. 1.00 m/s LVOT Mean Rogelio. 0.72 m/s LVOT Peak Gr. 4.05 mmHg ELOISE Vmax Index 0.52 cm2/m2 LVOT Mean Gr. 2.35 mmHg LVOT VTI 0.20 m ELOISE Mean Rogelio. Index 0.52 cm2/m2 AoV Peak Orgelio. 3.13 (0.5-1.3 m/s) AoV Mean Rogelio. 2.22 m/s AO Peak GR. 39.16 mmHg AO Mean GR. 21.70 (<5 mmHg) VTI Ratio 0.35 ELOISE (VTI) 1.16 (2.5-4.5 cm2) ELOISE (VTI) Index 0.57 cm/m2 Mitral Valve MV E Max Rogelio. 1.56 (0.4-1.3 m/s) MV A Velocity 0.90 (0.4-1.3 m/s) E/A Ratio 1.64 MV Decel. Time 201.90 (160-240 msec) MV PHT 58.55 msec MVA PHT 3.75 cm2 Pulmonary Valve PV Peak Velocity 1.17 (0.5-1.5 m/s) Tricuspid Valve TR P. Velocity 2.93 m/s TV Regurg Vmax 2.93 m/s RAP Estimate 10.00 mmHg RVSP 44.00 mmHg TR P. Gradient 34.40 mmHg
[2019-08-26 09:25] LABS: Diff Comment RBC Morph Reviewed
[2019-08-26 09:26] LABS: Anisocytosis 1+; Polychromasia Present
[2019-08-26] MEDS: Lidocaine 5% Patch 1 PATCH TP (10:28)
[2019-08-26] MEDS: Magnesium Oxide 400 MG TAB PO (10:35)
--- NOTE | 2019-08-26 12:06 | W.PM.PROGNOT ---
Date of Service Date of service: 08/26/19 Time of Service: 12:10 Assessment and Plan Assessment and plan (1) CHF (congestive heart failure): Status: Chronic Assessment and plan: Evidence of CHF which has already improved, with patient nearing baseline respiratory status. - Mr. Pereira originally complained of a brief episode of chest discomfort, which spontaneously resolved at home without intervention. In the setting of significantly elevated BP and acute CHF his troponin remains negative, with ECHO showing no wall motion abnormalities. Doubt symptoms related to ACS, but may benefit from ischemic evaluation eventually. Plan on completing rule out with the last set of troponin. - Also with evidence of significantly elevated blood pressure at presentation, with systolic exceeding 110. Patient also has a history of poorly controlled HTN - symptoms may represent hypertensive emergency with flash pulmonary edema. Goal is for improved blood pressure control as below. (2) Hypertension: Status: Chronic Assessment and plan: Uncontrolled BP at time of arrival, with potential relation to acute flash pulmonary edema. -Has been maintained on nitro GTT, with plans to wean off through this morning. ?Continue clonidine. Uptitrate beta-bryan therapy ? HR was reviewed and appropriate for increase. ?Hold ARB in setting of mild UMAIR. ?Plan on reinitiation of long-acting nitrate once of nitro GTT. ?Allergy to amlodipine noted. Continue to monitor closely. (3) Aortic stenosis: Status: Chronic Assessment and plan: ECHO with moderate - previous study in 2018 with mild to moderate stenosis. (4) Oypup-jw-dhqaksd kidney injury: Status: Acute Assessment and plan: Minimal elevation of creatinine from prior values. In review of labs it appears that Mr. Pereira's creatinine has been steadily climbing, with a jump from 2.2 to 2.7 between 2018 and this year. Last creatinine of 2.9, with a value of 3.16 at time of admission. This may be on the basis of acutely worsening HTN, but very likely also represents a degree of both hypertensive and diabetic nephropathy. Monitor renal function closely, renally dose medications, and avoid nephrotoxins. (5) DVT prophylaxis: Status: Acute Assessment and plan: Prior history of SDH noted. Continue SCDs. Subjective Subjective Interval history since last seen: 79 year old man with a prior history of poorly controlled HTN and CAD, admitted from [facility] Emergency Department on 08/25 with a diagnosis of Flash Pulmonary Edema. Mr. Pereira has a Past Medical History significant for poorly controlled HTN, Diastolic CHF, moderate , and CAD with prior NSTEMI s/p stents. His other history includes CKD likely stage 4, hx TIA, Cirrhosis with mention of both YAO and prior significant EtOH use, DM, PHTN, Gout, and a history of Bladder Ca. He is on treatment for chronic pain, mention of nephrotic range proteinuria, and gout. He has also had a prior SDH. The patient presented to the ED with complaint of an episode of chest pain that lasted approximately 5 minutes with spontaneous resolution. Following the CP Mr. Pereira rested by lying down, and awoke with difficulty breathing. Upon presentation he was noted to be slightly hypoxic (although questionable as with change in probe his oxygen saturation improved into the 90's), and was noted to be significantly hypertensive with a SBP of 217. Labwork showed a normal WBC and chronic appearing mild anemia and TCP, evidence of mildly worsened renal function with a creatinine of 3.16 (prior 2.91), negative troponins, and elevated Pro-BNP at 1428 (prior values of 800-1200's). CXR was officially interpreted as without acute changes, but bedside Ultrasound in the ED was noted to showB-lines diffusely through the lung almendarez. He clinically appeared to be in acute CHF as well. The patient was referred for admission for further evaluation and treatment. Following admission Mr. Pereira was maintained on a nitro gtt, and diuresed nearly 1L following administration of IV Diuretic in the ED. He reports feeling vastly improved. His troponin remains negative this morning, and ECHO was interpreted as with normal LV & RV function, but with Grade 2 Diastolic Dysfunction, moderate and MR. No other events reported. Remains afebrile. Exam Narrative Exam Narrative: General: Patient appears comfortable, AAOX3, NAD Neck: Supple CV: Regular, nontachycardic, S1S2, 3/6 Harsh LIDA RUSB. Pulmonary: Clear to auscultation bilaterally, no crackles, wheezing, or rhonchi at time of exam. Abdomen: + Bowel Sounds, soft, nontender, nondistended Vascular: mild b/l lower extremity edema Psych: Normal mood and affect. Objective Objective Clinical Data: Abnormal lab results 08/25/19 08/25/19 08/26/19 Range/Units 17:59 17:59 06:15 RBC 3.86 L 3.22 L (4.50-6.00) m/cumm Hgb 11.4 L 9.7 L (13.5-17.5) g/dL Hct 34.8 L 29.0 L (40.0-50.0) % RDW 16.1 H 15.8 H (11.8-14.1) % Plt Count 112 L 102 L (130-400) x1000/uL MPV 11.3 H (8.0-11.0) fL Absolute Lymphocytes 1.02 L (1.2-3.4) k/cumm Sodium 146 H (136-145) mmol/L Chloride (98-107) mmol/L Anion Gap 13.5 H (3-11) mmol/L BUN 52 H (7-18) mg/dL Creatinine 3.16 H (0.70-1.30) mg/dL Glucose 169 H (74-106) mg/dL Calcium (8.5-10.1) mg/dL Magnesium 1.6 L (1.8-2.4) mg/dL Alkaline Phosphatase 118 H (46-116) U/L 08/26/19 Range/Units 06:15 RBC (4.50-6.00) m/cumm Hgb (13.5-17.5) g/dL Hct (40.0-50.0) % RDW (11.8-14.1) % Plt Count (130-400) x1000/uL MPV (8.0-11.0) fL Absolute Lymphocytes (1.2-3.4) k/cumm Sodium (136-145) mmol/L Chloride 109 H (98-107) mmol/L Anion Gap 11.7 H (3-11) mmol/L BUN 49 H (7-18) mg/dL Creatinine 3.11 H (0.70-1.30) mg/dL Glucose (74-106) mg/dL Calcium 8.1 L (8.5-10.1) mg/dL Magnesium (1.8-2.4) mg/dL Alkaline Phosphatase (46-116) U/L Vital Signs Temperature 36.5 C 08/26/19 07:58 Temperature Source Temporal Artery Scan 08/26/19 07:58 Pulse 67 08/26/19 11:01 Pulse 68 08/26/19 11:01 Respiratory Rate 18 08/26/19 11:01 Respiratory Effort 08/26/19 08:16 Respiratory Depth Normal 08/26/19 08:16 Respiratory Pattern Normal 08/26/19 08:16 Blood Pressure 137/55 L 08/26/19 11:01 Blood Pressure Mean 74 08/26/19 11:01 Blood Pressure Position Supine 08/26/19 07:58 Pulse Oximetry 96 08/26/19 11:01 Oxygen Delivery Method Room Air 08/26/19 08:15 Oxygen Flow Rate 0 08/26/19 08:15 Fraction of Inspired Oxygen (FIO2) 30 08/25/19 18:43 Pain Level 2 08/26/19 07:58 Intake & Output 08/25/19 08/26/19 08/26/19 23:59 11:59 23:59 Intake Total 414.3 / 414.3 627.8 / 627.8 Output Total 1250 / 1250 575 / 575 Balance -835.7 / -835.7 52.8 / 52.8 Weight 87.6 kg 90.6 kg Intake: IV 114.3 / 114.3 187.8 / 187.8 Oral 300 / 300 440 / 440 Output: Urine 1250 / 1250 575 / 575 Other: Urine Color Yellow Straw Urine Appearance Clear Clear Urine Odor None None Comment Pt voids to commode. He states he dribbles No void at this time. Wearing an incont. pant. Voiding Methods Bedside Commode Bedside Commode Laboratory Results WBC 5.96 k/cumm (4.4-10.8) 08/26/19 06:15 RBC 3.22 m/cumm (4.50-6.00) L 08/26/19 06:15 Hgb 9.7 g/dL (13.5-17.5) L 08/26/19 06:15 Hct 29.0 % (40.0-50.0) L 08/26/19 06:15 MCV 90.1 fL (80-95) 08/26/19 06:15 MCH 30.1 pg (27.0-33.0) 08/26/19 06:15 MCHC 33.4 g/dL (32.0-36.0) 08/26/19 06:15 RDW 15.8 % (11.8-14.1) H 08/26/19 06:15 Plt Count 102 x1000/uL (130-400) L 08/26/19 06:15 MPV 11.3 fL (8.0-11.0) H 08/26/19 06:15 Immature Gran % 0.5 08/26/19 06:15 Neutrophils % 66.1 08/26/19 06:15 Lymphocytes % 23.2 08/26/19 06:15 Monocytes % 7.9 08/26/19 06:15 Eosinophils % 1.8 08/26/19 06:15 Basophils % 0.5 08/26/19 06:15 Absolute Neutrophils 3.94 k/cumm (1.2-6.7) 08/26/19 06:15 Absolute Lymphocytes 1.38 k/cumm (1.2-3.4) 08/26/19 06:15 Absolute Monocytes 0.47 k/cumm (0.11-0.7) 08/26/19 06:15 Absolute Eosinophils 0.11 k/cumm (0.0-0.7) 08/26/19 06:15 Absolute Basophils 0.03 k/cumm (0.0-0.2) 08/26/19 06:15 Differential Comment Rbc morph reviewed 08/26/19 06:15 RBC Morphology See below 08/26/19 06:15 Polychromasia Present 08/26/19 06:15 Anisocytosis 1+ 08/26/19 06:15 Sodium 144 mmol/L (136-145) 08/26/19 06:15 Potassium 4.4 mmol/L (3.5-5.1) 08/26/19 06:15 Chloride 109 mmol/L (98-107) H 08/26/19 06:15 Carbon Dioxide 23.3 mmol/L (21.0-32.0) 08/26/19 06:15 Anion Gap 11.7 mmol/L (3-11) H 08/26/19 06:15 BUN 49 mg/dL (7-18) H 08/26/19 06:15 Creatinine 3.11 mg/dL (0.70-1.30) H 08/26/19 06:15 Estimated GFR/1.73 m2 19.46 (mL/min/1.73m2) 08/26/19 06:15 Glucose 81 mg/dL (74-106) D 08/26/19 06:15 Calcium 8.1 mg/dL (8.5-10.1) L 08/26/19 06:15 Magnesium 1.8 mg/dL (1.8-2.4) 08/26/19 06:15 Total Bilirubin 0.3 mg/dL (0.2-1.0) 08/25/19 17:59 AST 31 U/L (15-37) 08/25/19 17:59 ALT 41 U/L (16-63) 08/25/19 17:59 Alkaline Phosphatase 118 U/L (46-116) H 08/25/19 17:59 Troponin I < 0.05 ng/Ml (<0.06) 08/26/19 06:15 NT-Pro-B Natriuret Pep 1428 pg/mL (<300) 08/25/19 17:55 Total Protein 7.4 g/dL (6.4-8.2) 08/25/19 17:59 Albumin 4.1 g/dL (3.4-5.0) 08/25/19 17:59
--- NOTE | 2019-08-26 12:26 | PHARADMIT ---
Admission Pharmacy Clinical Review Flash Pulm.Edema, UMAIR (Diabetic) Code Status DNR/DNI Current Weight 90.6 kg Renally Cleared and Narrow Therapeutic Index Meds CrCl~18ml/min QTc Value / Action Taken QTC 472 BP Control, Fever BP 137/55 Afebrile Neuropathic Pain 2/10 (Gabapentin and Lidocaine added-neck pain) Electrolytes reviewed K+ 4.4 Mag 1.8 DVT Prophylaxis NONE-ASA 81mg only....will mention to MD Opiate Usage / Scheduled Bowel Regimen Ordered yes Dilaudid (not using)/-no bowel meds Plt/SCr for Heparin / Enoxaparin Plt 102 SCr 3.11 INR for Warfarin H/H stable, WBC/Bands H/H 9.7/29.0 WBC 5.96 Antibiotic appropriateness none Cultures and Sensitivities U/A pending per MD but not ordered yet Surgical ABX d/c within 24 hr DM control / Insulin Dosing BG 81 (Lantus increased to BID, Novolog) Heart Failure (Check EF%) (TAO's, B-Block, Diuretics) Coreg (increased), Clonidine, Lasix, Hydralazine, Lasix Nitroglycerin infusion-d/c LOUIS IV to PO Switch Home Meds Reviewed Gabapentin dose higher than recommended for UMAIR, MD aware, but patient states this is the only med that controls his neuropathic pain Pt's own Vit B12 3000mcg SL lozenge....need to research more Home Meds Not Ordered Losartan not ordered for UMAIR Acyclovir, Imdur, Methocarbamol, NTG sl Comments troponin neg x 3--OH ruled out On Finasteride and Tamsulosin Hx Alcoholism and Cirrhosis Amlodipine allergy-MD may consider adding low dose Felodipine after a little more info about allergy
[2019-08-26] MEDS: Bacitracin 1 PACKET TP (12:50)
[2019-08-26 12:54] LABS: Troponin I < 0.05 ng/Ml (<0.06)
[2019-08-26] MEDS: Methocarbamol 750 MG TAB PO (16:04)
[2019-08-26] MEDS: Acetaminophen 325 MG TAB PO ×2 (16:04→20:39)
--- NOTE | 2019-08-26 17:02 | PDOC.CMIN ---
- If Service Date Differs Date of service: 08/26/19 Time of Service: 17:02 Care Management Initial Assess REASON FOR HOSPITALIZATION:: CHF PAST MEDICAL HISTORY/PAST SURGICAL HISTORY:: Medical History: Abdominal pain, generalized (Chronic 08/29/04). 2004-CT scan neg. U/S-fatty liver, enlarged spleen; EGD-heg. HPylori, neg. endomesial Ab. Actinic keratosis (Chronic). Allergic rhinitis (Chronic). seasonal allergies. Anemia (Chronic). mild low Hct; thrombocytopenia; eosinphilia. Bilateral pleural effusion (Chronic 07/22/17). [facility] [place] 07/09/17. Bronchitis (Chronic 01/31/15). CAD (coronary artery disease) (Chronic). S/P STENTING, NO RECURRENT ANGINAL SYMPTOMS WITH NEGATIVE NUCLEAR STRESS TEST 2011, LVEF 53% -12-25-2013. 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). Chronic hepatitis (Acute 11/03/12). Chronic pain disorder (Acute 08/30/15). CONTRACT 01/19/16. Chronic renal insufficiency, stage III (moderate) (Chronic 04/16/16). Cirrhosis of liver (Chronic 09/28/13). YAO-RELATED. 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). Diabetes mellitus with neuropathy (Chronic 08/17/14). Diabetic polyneuropathy associated with type 2 diabetes mellitus (Chronic 03/05/16). Diabetic retinopathy (Chronic 02/14/15). 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). Esophageal varices without bleeding (Chronic 07/09/13). Frequent nosebleeds (Chronic 10/15/17). Gout (Chronic 05/20/12). History of bladder cancer (Acute 10/29/16). Hyperlipidemia (Chronic). Hypermetropia (Chronic 11/24/12). Hypertension (Chronic). Hypertensive retinopathy (Chronic 11/24/12). Incipient cataract (Chronic 11/24/12). Kidney disease (Chronic). renal insuff.; CREATININE 1.3. Knee pain (Chronic). LEFT. Left hip pain (Chronic 12/27/16). Lumbago (Chronic). herniation by MRI; S/P discectomy L5; left leg pain continues/numbness. Lumbosacral radiculopathy at L5 (Chronic 05/20/17). Microscopic hematuria (Chronic 10/29/16). Neck pain (Chronic). neck fusion C5-6-7; s/p fall on the ice with significant neck injury, paralysis for a short time; short term memory loss; decreased right arm strength. Re-injured 02/13. 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 Peripheral edema (Chronic 03/29/16). Polyp of colon (Chronic 08/29/99). hyperplastic polyp; per colonoscopy 2009-Tubular adenoma and hyperplastic polyp. Portal hypertensive gastropathy (Chronic 07/09/13). Presbyopia (Chronic 11/24/12). Primary malignant neoplasm of bladder (Chronic 01/20/08). atypical urothelial cells on urine 01/05; S/P 2 OPERATIONS; VCG THERAPY. Renal colic on right side (Chronic 12/25/13). Subdural hematoma (Chronic 02/24/17). Tear film insufficiency (Chronic 11/24/12). Thyroid nodule (Chronic 03/18/17). 1.6cm right. Surgical History . ACHILLOTENOTOMY. 1988 LEFT. 1997 RIGHT. Bladder Surgery. 2001. 2006. DR. VÁSQUEZ. Cholecystectomy (08/05/12). Colonoscopy - MAC. . 08/09. DISC SURGERY (~1996). L5. EGD - MAC. 06/29/13 [facility] [place]; 07/19/14 [facility] [place]. Spinal Fusion (~1992). C5, 6-7. Stent placement (~2007). X [address] JANICE KENDALL PREVIOUS FUNCTIONAL STATUS/SOCIAL/FAMILY SUPPORTS:: Norman lives in a single family home in [place], [place] with his Anastacia and adult daughter Roxanna. Norman is independent at baseline and continues to drive. 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 CURRENT FUNCTIONAL STATUS:: Norman was sleeping deeply when CM came to meet with him. His Anastacia was present and readily answered all questions. She was pleasant and very cooperative. She stated that Norman is very independent and a bit stubborn. He uses no assistive devices and receives no services in the community. ADVANCE DIRECTIVES:: on file at [facility] Has patient been provided with information about the portal?: Yes Did the patient sign up for the portal?: Yes (previously) CODE STATUS:: DNR/DNI INSURANCE COVERAGE / FINANCIAL ISSUES:: Medicare. BC/BS CURRENT HOME/COMMUNITY SERVICES/EQUIPMENT:: none PRIMARY CARE PHYSICIAN:: Ailyn Ha POTENTIAL DISCHARGE NEEDS:: Follow up with PCP and discharge plan of care PATIENT/FAMILY EDUCATION NEEDS:: Discharge plan, limitations, follow up plan, Ask Me Three. TRANSPORTATION:: via private vehicle with when ready PLAN:: Norman will likely be discharged home with no new services. He will follow up with his PCP and discharge plan of care. CM will continue to support patient, family and discharge planning needs.
[2019-08-26] MEDS: Isosorbide Mononitrate 60 MG TABCR PO (17:08)
[2019-08-26] MEDS: Insulin Aspart 300 UNITS/3 ML PEN SC (17:09)
[2019-08-27] VITALS (21 sets, daily range): BP systolic 142–177; BP diastolic 52–72; PULSE 55–67; RESP 13–18; TEMP 35.8–36.5; O2SAT 88–99
[2019-08-27] MEDS: Methocarbamol 750 MG TAB PO ×2 (00:33→05:00)
[2019-08-27] MEDS: Gabapentin 600 MG TAB PO ×4 (00:33→14:03)
[2019-08-27] MEDS: Normal Saline Flush 10 ML SYR IVP ×2 (00:34→08:18)
[2019-08-27] MEDS: HYDROmorphone 2 MG TAB PO ×2 (00:42→08:11)
[2019-08-27] MEDS: Acetaminophen 325 MG TAB PO ×2 (04:48→09:34)
[2019-08-27 06:47] LABS: Abs Immature Grans 0.02 k/cumm (0.0-0.09); Absolute Basophil Count 0.02 k/cumm (0.0-0.2); Absolute Eosinophil Count 0.16 k/cumm (0.0-0.7); Absolute Lymphocyte Count 1.37 k/cumm (1.2-3.4); Absolute Monocyte Count 0.44 k/cumm (0.11-0.7); Absolute Neutrophil Count 3.41 k/cumm (1.2-6.7); Basophils % 0.4; HGB 9.6 g/dL (13.5-17.5); Immature Grans % 0.4; Lymphocytes % 25.3; Mean Corp. HGB Concentration 33.1 g/dL (32.0-36.0); Mean Corpuscular Hemoglobin 29.5 pg (27.0-33.0); Mean Corpuscular Volume 89.2 fL (80-95); Mean Platelet Volume 10.6 fL (8.0-11.0); Monocytes % 8.1; Neutrophils % 62.8; RBC 3.25 m/cumm (4.50-6.00); RBC Distribution Width 15.5 % (11.8-14.1); White Blood Cell Count 5.42 k/cumm (4.4-10.8)
[2019-08-27 06:55] LABS: Anion Gap 10.7 mmol/L (3-11); BUN 51 mg/dL (7-18); CO2 23.3 mmol/L (21.0-32.0); CREATININE 3.16 mg/dL (0.70-1.30); Calcium 8.5 mg/dL (8.5-10.1); Chloride 104 mmol/L (98-107); Estimated GFR 19.11 (mL/min/1.73m2); Glucose 101 mg/dL (74-106); Magnesium 1.7 mg/dL (1.8-2.4); Potassium 4.3 mmol/L (3.5-5.1); Sodium 138 mmol/L (136-145)
[2019-08-27 07:09] LABS: Platelet Count 99 x1000/uL (130-400)
[2019-08-27] MEDS: Allopurinol 100 MG TAB PO (08:10)
[2019-08-27] MEDS: Magnesium Oxide 400 MG TAB 800 MG PO (08:10)
[2019-08-27] MEDS: Aspirin E.C. 81 MG TABEC PO (08:10)
[2019-08-27] MEDS: Carvedilol 25 MG TAB PO (08:11)
[2019-08-27] MEDS: Furosemide 40 MG TAB 80 MG PO (08:12)
[2019-08-27] MEDS: Finasteride 5 MG TAB PO (08:12)
[2019-08-27] MEDS: cloNIDine 0.1 MG TAB PO (08:12)
[2019-08-27] MEDS: hydrALAZINE 25 MG TAB PO ×2 (08:12→14:03)
[2019-08-27] MEDS: Isosorbide Mononitrate 60 MG TABCR PO (08:12)
[2019-08-27] MEDS: Insulin Glargine 300 UNITS/3 ML PEN 60 UNITS SC (08:15)
--- NOTE | 2019-08-27 10:18 | PDOC.CMDIS ---
- If Service Date Differs Date of service: 08/27/19 Time of Service: 10:18 LACE Index Scoring Tool - Questions: Length of Stay (in days): 3 Acuity (Admit via E.D.?): Yes Comorbidities: Diabetes w/o Complication, Congestive Heart Failure, Liver or Renal Disease E.D. Visits: 2 - Answers: Total Score: 13 Risk of Readmission: High Risk Care Management Discharge Reason for Hospitalization: CHF Discharge Plan: Norman will return home with no additional services at this time. His , Anastacia will drive him home via private vehicle. He will follow up with his PCP, as recommended. He is agreeable to the plan. Patient/Family Education Needs: Review discharge instructions, discussion of self care needs including Ask Me Three
[2019-08-27] MEDS: Bacitracin 1 PACKET TP (11:20)
[2019-08-27] MEDS: Magnesium Citrate 300 ML BTL PO (12:07)
--- NOTE | 2019-08-27 14:05 | DSE_ITS ---
Date of service: 08/27/19 Time of Service: 14:05 DS: Diagnosis Discharge Diagnosis (1) CHF (congestive heart failure): Status: Chronic (2) Hypertension: Status: Chronic (3) Aortic stenosis: Status: Chronic (4) Rjute-dj-jfqorad kidney injury: Status: Acute Discharge Plan Disposition Patient Disposition: HOME Condition: Stable Discharge Details Chief Complaint: Chest Pain Clinical Impression: Acute pulmonary edema Reason For Visit: [facility] Admit Date/Time: 08/25/19 20:07 Admit Provider: Juan Carlos Small Attending Provider: Juan Carlos Small Primary Care Provider: Ailyn Ha ED Provider: Viky Doe Hospital Course Hospital Course: Chief Complaint: CP, Dyspnea HPI: 79 year old man with a prior history of poorly controlled HTN and CAD, admitted from [facility] Emergency Department on 08/25 with a diagnosis of Flash Pulmonary Edema. Mr. Pereira has a Past Medical History significant for poorly controlled HTN, Diastolic CHF, moderate , and CAD with prior NSTEMI s/p stents. His other history includes CKD likely stage 4, hx TIA, Cirrhosis with mention of both YAO and prior significant EtOH use, DM, PHTN, Gout, and a history of Bladder Ca. He is on treatment with opiates for chronic pain, and there is mention of nephrotic range proteinuria and gout. He has also had a prior Subdural Hemorrhage. The patient presented to the ED with complaint of an episode of chest pain that lasted approximately 5 minutes with spontaneous resolution. Following the CP Mr. Pereira rested by lying down, and awoke with difficulty breathing. Upon presentation he was noted to be slightly hypoxic (although questionable as with change in probe his oxygen saturation improved into the 90's), and was noted to be significantly hypertensive with a SBP of 217. Labwork showed a normal WBC and chronic appearing mild anemia and TCP, evidence of mildly worsened renal function with a creatinine of 3.16 (prior 2.91), negative troponins, and elevated Pro-BNP at 1428 (prior values of 800-1200's). CXR was officially interpreted as without acute changes, but bedside Ultrasound in the ED was noted to show B-lines diffusely through the lung almendarez. He clinically appeared to be in acute CHF as well. The patient was referred for admission for further evaluation and treatment. Following admission Mr. Pereira was maintained on a nitro gtt, and diuresed nearly 1L following administration of IV Diuretic in the ED. He reports feeling vastly improved, and remains off oxygen therapy. His troponin values remained negative, and ECHO was interpreted as with normal LV & RV function and without wall motion abnormality. He did have evidence of Grade 2 Diastolic Dysfunction, as well as moderate and MR. This morning he is complaining of constipation, which appears to be a chronic problem for him. No other events reported. Remains afebrile. Hospital Course: (1) CHF (congestive heart failure): Evidence of CHF that quickly resolved, with patient near or at baseline respiratory status. - Mr. Pereira originally complained of a brief episode of chest discomfort, which spontaneously resolved at home without intervention. In the setting of significantly elevated BP and acute CHF his troponin remained negative, with ECHO showed no wall motion abnormalities. Doubt symptoms related to ACS, but may benefit from ischemic evaluation eventually - will defer to patient's primary care provider. - Also with evidence of significantly elevated blood pressure at presentation, with systolic exceeding 210. Patient also has a history of poorly controlled HTN - symptoms may represent hypertensive emergency with flash pulmonary edema. Goal is for improved blood pressure control as below. (2) Hypertension: Uncontrolled BP at time of arrival, with potential cause of flash pulmonary edema. -was initially maintained on nitro GTT, discontinued and now off for approximately 24 hours. ?Continue clonidine. Uptitrated beta-bryan therapy ? HR was reviewed, currently mildly bradycardic with HR 55 and above. Also asymptomatic. ?Initially held ARB in setting of supposed UMAIR - however restarting (see below). ?Long-acting nitrate restarted. ?Allergy to amlodipine noted. Continue to monitor closely at home, and follow-up with PCP. (3) Aortic stenosis: ECHO with moderate - previous study in 2018 with mild to moderate stenosis. (4) Hvejr-ze-cvwnfki kidney injury: Minimal elevation of creatinine from prior value in May - creatinine of 2.2 one year ago, 2.7 this past summer, 2.9 in May, and currently 3.1 and unchanged daily since admission. This may represent a somewhat chronic but rapid decline in renal function as opposed to true UMAIR - very likely also represents a degree of both hypertensive and diabetic nephropathy. Will resume ARB, recheck BMP in 3 days, monitor closely and advise follow-up with button inspector, renally dose medications, and avoid nephrotoxins. (5) Constipation: Reportedly chronic. Received dose of Mag Citrate prior to discharge. Will ensure bowel regimen at time of discharge given chronic opiate therapy. (6) DVT prophylaxis: Prior history of SDH noted. Was maintained on SCDs. Home Meds and New Rx's Prescriptions: New senna 8.6 mg capsule 8.6 mg PO QHS Qty: 60 RF: 0 docusate sodium [Colace] 100 mg capsule 100 mg PO BID Qty: 60 RF: 0 carvedilol 6.25 mg tablet 6.25 mg PO Q12H Qty: 60 RF: 0 Continued carvedilol 25 mg tablet 12.5 mg PO BID Qty: 90 RF: 5 losartan 25 mg tablet 25 mg PO DAILY RF: 0 triamcinolone acetonide 0.1 % ointment 1 applic TP BID Qty: 80 RF: 4 aspirin 81 MG tablet,delayed release (DR/EC) 81 mg PO DAILY Qty: 100 RF: 12 cyanocobalamin (vitamin B-12) 3,000 MCG lozenge 3,000 mcg Sublingual DAILY RF: 0 furosemide [Lasix] 40 mg tablet 80 mg PO DAILY Qty: 180 RF: 12 allopurinol 100 mg tablet 100 mg PO BID Qty: 180 RF: 4 tamsulosin [Flomax] 0.4 mg capsule 0.4 mg PO DAILY Qty: 90 RF: 4 insulin lispro [Humalog KwikPen Insulin] 100 unit/mL insulin pen 14 - 20 unit Sub-Q AC & HS Qty: 60 RF: 6 nitroglycerin [Nitrostat] 0.4 mg tablet, sublingual 0.4 mg Sublingual PRN Qty: 25 RF: 3 (DME) pen needle, diabetic 31 gauge x 1/3 needle 1 ea Sub-Q 6 timed day and prn Qty: 600 RF: 4 acyclovir 800 mg tablet 800 mg PO .COMPLEX Qty: 35 RF: 0 clonidine HCl 0.1 mg tablet 0.1 mg PO BID Qty: 180 RF: 12 finasteride [Proscar] 5 mg tablet 5 mg PO DAILY Qty: 90 RF: 4 gabapentin 600 mg tablet 600 mg PO Q4H Qty: 270 RF: 12 hydralazine 25 mg tablet 25 mg PO TID Qty: 270 RF: 12 hydromorphone [Dilaudid] 2 mg tablet 2 mg PO BID MDD 2 PRN (Reason: pain) Qty: 60 RF: 0 atorvastatin [Lipitor] 80 mg tablet 80 mg PO DAILY Qty: 90 RF: 12 (DME) Blood Glucose Test Strip 1 ea Miscellaneous AC Qty: 400 RF: 11 (DME) lancets [OneTouch Delica Lancets] 33 gauge misc 1 ea Miscellaneous AC & HS Qty: 400 RF: 11 (DME) lancing device with lancets [[employer] Lanc Device] Kit 1 ea Miscellaneous AC ans HS Qty: 400 RF: 11 isosorbide mononitrate 60 mg tablet extended release 24 hr 120 mg PO DAILY Qty: 90 RF: 12 Vitamin B-6 50 MG capsule 50 mg PO DAILY RF: 0 acetaminophen [Tylenol] 325 MG tablet 325 - 650 mg PO Q4H PRN PRNRF: 0 albuterol sulfate [Ventolin HFA] 60 PUFF/INH HFA aerosol inhaler 2 puff Inhalation Q4H PRNRF: 0 (DME) OptiChamber Advantage 1 EACH spacer 1 ea Miscellaneous DIRECTED RF: 0 lidocaine [Lidoderm] 5 % adhesive patch,medicated 1 patch TP DAILY Qty: 15 RF: 0 methocarbamol [Robaxin-750] 750 mg tablet 750 mg PO QID PRN (Reason: muscle spasm) Qty: 14 RF: 0 Lantus Solostar U-100 Insulin 100 unit/mL (3 mL) insulin pen 60 unit Sub-Q DAILY RF: 0 Discharge Instructions Additional Instructions: Please see your primary care provider within 1 week of discharge. You have new dosing on your blood pressure medications. Please make sure to watch your pressures and heart carefully at home. Repeat blood work in 3 days. Activity:: No strenuous activity Equipment/Supplies:: No Equipment Needed Diet:: Carb counting low sodium Discharge Orders Discharge Orders: Discharge Order (Routine); Ordered 08/27/19 Ordered By: Irving Ruiz Other Ambulatory Orders: Basic Metabolic Panel (Routine) Location: None Selected Ordered By: Irving Ruiz DS: Summary Status at Discharge Functional status at discharge: independent ambulation Overall status at discharge: patient is back to baseline Mental Status: mental status grossly normal Speech and Movement: speech and movement normal Mood: congruent mood Affect: normal affect Exam Psych Mental Status: mental status grossly normal Speech and Movement: speech and movement normal Mood: congruent mood Affect: normal affect DS: Data Vitals/I&O Vitals and I&O: Vital Signs Temperature 36.5 C 08/27/19 07:50 Temperature Source Temporal Artery Scan 08/27/19 07:50 Pulse 57 L 08/27/19 11:00 Pulse 60 08/27/19 11:00 Respiratory Rate 17 08/27/19 11:00 Respiratory Effort Non-Labored 08/27/19 07:50 Respiratory Depth Normal 08/27/19 07:50 Respiratory Pattern Normal 08/27/19 07:50 Blood Pressure 150/61 H 08/27/19 11:00 Blood Pressure Mean 84 08/27/19 11:00 Blood Pressure Position Sitting 08/27/19 07:50 Pulse Oximetry 98 08/27/19 08:04 Oxygen Delivery Method Room Air 08/27/19 07:50 Oxygen Flow Rate 0 08/27/19 07:50 Fraction of Inspired Oxygen (FIO2) 30 08/27/19 04:45 Pain Level 2 08/27/19 09:34 Comment Denied dizziness while standing. 08/26/19 13:56 Intake & Output 08/26/19 08/27/19 08/27/19 23:59 11:59 23:59 Intake Total 711.35 / 1392.65 420 / 420 Output Total 1500 / 2075 450 / 450 Balance -788.65 / -682.35 -30 / -30 Weight 87.2 kg Intake: IV 111.35 / 352.65 Oral 600 / 1040 420 / 420 Output: Urine 1500 / 2075 450 / 450 Other: Urine Color Yellow Yellow Urine Appearance Clear Clear Urine Odor Normal Comment Pt wearing a brief at this time. Brief on at this time. Voiding Methods Bedside Commode Urinal Data Completed and Pending Completed studies during hospitalization [Text1]: Exam(s) a RAD:XR portable chest AP EXAM: XR PORTABLE CHEST AP CLINICAL HISTORY: pain TECHNIQUE: The study was performed according to the usual protocol. COMPARISON: XR CHEST 2V PA LATERAL from 03/18/2019 FINDINGS: There are changes of COPD and pulmonary scarring. No gross interval change in appearance in comparison with prior studies including March 18. Slight prominence of pulmonary interstitial markings may be related in part to portable technique. Cardiac size within normal limits. No pleural effusion identified on this frontal film. IMPRESSION: No evidence of acute change. --------- Exam(s) a US:US echocardiogram APPROVED REPORT EXAM: Comprehensive 2D, Doppler, and color-flow Echocardiogram Patient Location: In-Patient Contract Designer: HANY Sanchez (AE) Rhythm: NSR Indications: flash pulm edema. hx CAD uncontrolled HTN Conclusion Left Ventricle : The left ventricle is normal size. Mild left ventricular hypertrophy. Left ventricular systolic function is normal. There is normal LV segmental wall motion. There is grade 2 diastolic dysfunction. LVEF is etimated to be 65-70%. Right Ventricle : Right ventricle is dilated. The right ventricular systolic function appears normal. Atria : Left atrium is mildly dilated. Right atrium is moderately dilated. Aortic Valve : Aortic valve is probably trileaflet. Moderate aortic valve sclerosis. No aortic regurgitation is present. Moderate aortic stenosis (Mean gradient 22mmHg, ELOISE 1.16cm2). Mitral Valve : Mitral valve leaflets are thickened. There is mitral annular calcification. Mild to moderate mitral regurgitation. No evidence of significant mitral valve stenosis. Tricuspid Valve : The tricuspid valve is normal in structure. Great Vessels : The IVC is dilated but collapses greater than 50%. RVSP is chayo mated to be between 34-40 mmHg but this may be underestimated due to poor TR signal.. Compared to echocardiogram dated 01/06/2018, the aortic valve mean gradient has increased from 13 to 22 mmHg. There are no other significant changes. Labs on day of discharge: Labs from last 24 hours 08/27/19 08/27/19 06:20 06:20 WBC 5.42 RBC 3.25 L Hgb 9.6 L Hct 29.0 L MCV 89.2 MCH 29.5 MCHC 33.1 RDW 15.5 H Plt Count 99 L MPV 10.6 Immature Gran % 0.4 Neutrophils % 62.8 Lymphocytes % 25.3 Monocytes % 8.1 Eosinophils % 3.0 Basophils % 0.4 Absolute Neutrophils 3.41 Absolute Lymphocytes 1.37 Absolute Monocytes 0.44 Absolute Eosinophils 0.16 Absolute Basophils 0.02 Sodium 138 Potassium 4.3 Chloride 104 Carbon Dioxide 23.3 Anion Gap 10.7 BUN 51 H Creatinine 3.16 H Estimated GFR/1.73 m2 19.11 Glucose 101 Calcium 8.5 Magnesium 1.7 L [facility] Medical History Abdominal pain, generalized (Chronic 08/29/04) 2005-CT scan neg. U/S-fatty liver, enlarged spleen; EGD-heg. HPylori, neg. endomesial Ab Actinic keratosis (Chronic) Allergic rhinitis (Chronic) seasonal allergies Anemia (Chronic) mild low Hct; thrombocytopenia; eosinphilia Bilateral pleural effusion (Chronic 07/22/17) [facility] [place] 07/09/17 Bronchitis (Chronic 01/31/15) CAD (coronary artery disease) (Chronic) S/P STENTING, NO RECURRENT ANGINAL SYMPTOMS WITH NEGATIVE NUCLEAR STRESS TEST 2011, LVEF 53% -12-25-2013 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) Chronic hepatitis (Acute 11/03/12) Chronic pain disorder (Acute 08/30/15) CONTRACT 01/19/16 Chronic renal insufficiency, stage III (moderate) (Chronic 04/16/16) Cirrhosis of liver (Chronic 09/28/13) YAO-RELATED 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) Diabetes mellitus with neuropathy (Chronic 08/17/14) Diabetic polyneuropathy associated with type 2 diabetes mellitus (Chronic 03/05/16) Diabetic retinopathy (Chronic 02/14/15) 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) Esophageal varices without bleeding (Chronic 07/09/13) Frequent nosebleeds (Chronic 10/15/17) Gout (Chronic 05/20/12) History of bladder cancer (Acute 10/29/16) Hyperlipidemia (Chronic) Hypermetropia (Chronic 11/24/12) Hypertension (Chronic) Hypertensive retinopathy (Chronic 11/24/12) Incipient cataract (Chronic 11/24/12) Kidney disease (Chronic) renal insuff.; CREATININE 1.3 Knee pain (Chronic) LEFT Left hip pain (Chronic 12/27/16) Lumbago (Chronic) herniation by MRI; S/P discectomy L5; left leg pain continues/numbness Lumbosacral radiculopathy at L5 (Chronic 05/20/17) Microscopic hematuria (Chronic 10/29/16) Neck pain (Chronic) neck fusion C5-6-7; s/p fall on the ice with significant neck injury, paralysis for a short time; short term memory loss; decreased right arm strength Re-injured 02/13 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) Peripheral edema (Chronic 03/29/16) Polyp of colon (Chronic 08/29/99) hyperplastic polyp; per colonoscopy 2009-Tubular adenoma and hyperplastic polyp Portal hypertensive gastropathy (Chronic 07/09/13) Presbyopia (Chronic 11/24/12) Primary malignant neoplasm of bladder (Chronic 01/20/08) atypical urothelial cells on urine 01/05; S/P 2 OPERATIONS; VCG THERAPY Renal colic on right side (Chronic 12/25/13) Subdural hematoma (Chronic 02/24/17) Tear film insufficiency (Chronic 11/24/12) Thyroid nodule (Chronic 03/18/17) 1.6cm right Surgical History ACHILLOTENOTOMY 1988 LEFT 1998 RIGHT Bladder Surgery [address] VÁSQUEZ Cholecystectomy (08/05/12) Colonoscopy - MAC 08/09 DISC SURGERY (~1996) L5 EGD - MAC 06/29/13 [facility] [place]; 07/19/14 [facility] [place] Spinal Fusion (~1992) C5, 6-7 Stent placement (~2007) X [address] JANICE KENDALL Family History Mother Myocardial infarction Father Stroke Sister Myocardial infarction Stroke Brother Myocardial infarction Brother No problems noted. Social History Smoking/Tobacco Use Status: Former Tobacco Use Drug use: Current Sobriety What type of physical activity do you participate in: none Do you feel safe in your relationship?: Yes
== END 2019-08-27 15:40 | disposition home or self-care (01) ==
LOC: ER 20:47 → ICU 20:55
PROVIDERS: Emergency Medicine; Admitting Provider General Practice; Emergency Provider Physician Assistant; PCP Family Medicine; Visit Provider Internal Medicine
DX: I13.0 Hypertensive heart and chronic kidney disease with heart failure and stage 1 through stage 4 chronic kidney disease, or unspecified chronic kidney disease (principal); I50.33 Acute on chronic diastolic (congestive) heart failure; N17.9 Acute kidney failure, unspecified; I25.10 Atherosclerotic heart disease of native coronary artery without angina pectoris; I35.0 Nonrheumatic aortic (valve) stenosis; I25.5 Ischemic cardiomyopathy; Z95.5 Presence of coronary angioplasty implant and graft; N18.4 Chronic kidney disease, stage 4 (severe); E11.22 Type 2 diabetes mellitus with diabetic chronic kidney disease; G89.29 Other chronic pain; Z79.891 Long term (current) use of opiate analgesic; K59.00 Constipation, unspecified
CPT/HCPCS: 36415; 36416; 80048; 80053; 82962; 93005; 93306; 96365; 99217; 99222; 99233; 99285; 71045; 83735; 83880; 84484; 85025; 93010; 99218; 99226; G0378; J1940; J3490

== ENCOUNTER 2019-08-31 01:09 | Outpatient (CLI) | payer MEDICARE, BC, SELFPAY ==
[2019-08-31 08:08] LABS: Abs Immature Grans 0.03 k/cumm (0.0-0.09); Absolute Basophil Count 0.03 k/cumm (0.0-0.2); Absolute Eosinophil Count 0.11 k/cumm (0.0-0.7); Absolute Lymphocyte Count 1.22 k/cumm (1.2-3.4); Absolute Monocyte Count 0.47 k/cumm (0.11-0.7); Absolute Neutrophil Count 3.83 k/cumm (1.2-6.7); Basophils % 0.5; Eosinophils % 1.9; HGB 9.9 g/dL (13.5-17.5); Immature Grans % 0.5; Lymphocytes % 21.4; Mean Corp. HGB Concentration 34.1 g/dL (32.0-36.0); Mean Corpuscular Hemoglobin 30.7 pg (27.0-33.0); Mean Corpuscular Volume 90.1 fL (80-95); Mean Platelet Volume 10.5 fL (8.0-11.0); Monocytes % 8.3; Neutrophils % 67.4; Platelet Count 104 x1000/uL (130-400); RBC 3.22 m/cumm (4.50-6.00); RBC Distribution Width 15.8 % (11.8-14.1); White Blood Cell Count 5.69 k/cumm (4.4-10.8)
[2019-08-31 08:22] LABS: Hemoglobin A1C 6.5 % (4.5-6.2)
[2019-08-31 08:34] LABS: Anisocytosis 1+; Diff Comment RBC Morph Reviewed; Ovalocytes 2+
[2019-08-31 08:46] LABS: Anion Gap 13.4 mmol/L (3-11); BUN 51 mg/dL (7-18); CO2 21.6 mmol/L (21.0-32.0); Calcium 8.4 mg/dL (8.5-10.1); Chloride 106 mmol/L (98-107); Estimated GFR 18.17 (mL/min/1.73m2); Glucose 105 mg/dL (74-106); Potassium 4.4 mmol/L (3.5-5.1); Sodium 141 mmol/L (136-145)
== END 2019-08-31 01:29 ==
PROVIDERS: Internal Medicine; PCP Family Medicine; Visit Provider Internal Medicine Nephrology
DX: E11.9 Type 2 diabetes mellitus without complications (principal); N17.9 Acute kidney failure, unspecified; N18.4 Chronic kidney disease, stage 4 (severe)
CPT/HCPCS: 36415; 80048; 83036; 85025

== ENCOUNTER 2019-11-17 02:05 | Outpatient (CLI) | payer MEDICARE, BC, SELFPAY ==
--- NOTE | 2019-11-17 08:15 | DI.RAD_ITS ---
EXAM: RF BARIUM SWALLOW CLINICAL HISTORY: dysphagia, R13.10 TECHNIQUE: 2D and realtime digital imaging was performed. CONTRAST MATERIAL: Oral barium contrast was administered. COMPARISON: XR CHEST 2V PA LATERAL from 03/18/2019 XR PORTABLE CHEST AP from 08/25/2019 FINDINGS: Plain film of the chest shows that the heart size and pulmonary vasculature are within normal limits. The lungs are clear. There is unchanged blunting of the costophrenic angles bilaterally, likely re flecting scarring. Esophagus: The esophagus is patent with no evidence for erosions, fold thickening, strictures, or ma sses. With regards to the motility, there is a normal primary stripping wave. Tertiary contractions a re noted. There is a small hiatal hernia. No gastroesophageal reflux is present. There was no aspi ration during the examination. A barium tablet passed into the stomach without difficulty. IMPRESSION: No obstruction, aspiration or gastroesophageal reflux. FLUORO TIME: 1 minute and 43 seconds
[2019-11-17] MEDS: Barium Sulfate 60% W/V 355 ML BTL PO (09:43)
[2019-11-17] MEDS: Barium Sulfate 700 MG TAB PO (09:45)
== END 2019-11-17 02:25 ==
PROVIDERS: PCP Family Medicine; Visit Provider Family Medicine
DX: R13.10 Dysphagia, unspecified (principal); K44.9 Diaphragmatic hernia without obstruction or gangrene
CPT/HCPCS: 74221; J3490

== ENCOUNTER 2019-11-19 00:10 | Outpatient (CLI) | payer MEDICARE, BC, SELFPAY ==
[2019-11-19 13:09] LABS: Anion Gap 11.8 mmol/L (3-11); BUN 54 mg/dL (7-18); CO2 22.2 mmol/L (21.0-32.0); CREATININE 3.41 mg/dL (0.70-1.30); Calcium 7.9 mg/dL (8.5-10.1); Chloride 107 mmol/L (98-107); Glucose 102 mg/dL (74-106); Potassium 4.8 mmol/L (3.5-5.1); Sodium 141 mmol/L (136-145)
== END 2019-11-19 00:30 ==
PROVIDERS: PCP Family Medicine; Visit Provider Internal Medicine Nephrology
DX: N18.4 Chronic kidney disease, stage 4 (severe) (principal)
CPT/HCPCS: 36415; 80048

== ENCOUNTER 2019-12-08 23:57 | Emergency (ER) | payer MEDICARE, BC, SELFPAY ==
[2019-12-09 00:03] VITALS: BP 189/59; PULSE 79; RESP 16; TEMP 37.2; O2SAT 98
--- NOTE | 2019-12-09 00:20 | ED.GENADUL_ITS ---
Discharge Plan Disposition Patient Disposition: HOME Condition: Stable Discharge Details Chief Complaint: GenMedical Clinical Impression: Hypertension Primary Care Provider: Ailyn Ha ED Provider: Cordell Live Home Meds and New Rx's Prescriptions: Continued Lantus Solostar U-100 Insulin 100 unit/mL (3 mL) insulin pen 60 unit Sub-Q BID RF: 0 losartan 50 mg tablet 50 mg PO DAILY Qty: 90 RF: 4 clonidine HCl 0.1 mg tablet 0.2 mg PO Q6H Qty: 360 RF: 12 triamcinolone acetonide 0.1 % ointment 1 applic TP BID Qty: 80 RF: 4 calcitriol 0.25 mcg capsule 0.25 mcg PO .MWF RF: 0 carvedilol 25 mg tablet 25 mg PO BID Qty: 180 RF: 5 aspirin 81 MG tablet,delayed release (DR/EC) 81 mg PO DAILY Qty: 100 RF: 12 cyanocobalamin (vitamin B-12) 3,000 MCG lozenge 3,000 mcg Sublingual DAILY RF: 0 allopurinol 100 mg tablet 100 mg PO BID Qty: 180 RF: 4 insulin lispro [Humalog KwikPen Insulin] 100 unit/mL insulin pen 14 - 20 unit Sub-Q AC & HS Qty: 60 RF: 6 nitroglycerin [Nitrostat] 0.4 mg tablet, sublingual 0.4 mg Sublingual PRN Qty: 25 RF: 3 (DME) pen needle, diabetic 31 gauge x 1/3 needle 1 ea Sub-Q 6 timed day and prn Qty: 600 RF: 4 finasteride [Proscar] 5 mg tablet 5 mg PO DAILY Qty: 90 RF: 4 gabapentin 600 mg tablet 600 mg PO Q4H Qty: 270 RF: 12 hydralazine 25 mg tablet 25 mg PO TID Qty: 270 RF: 12 atorvastatin [Lipitor] 80 mg tablet 80 mg PO DAILY Qty: 90 RF: 12 (DME) Blood Glucose Test Strip 1 ea Miscellaneous AC Qty: 400 RF: 11 (DME) lancets [OneTouch Delica Lancets] 33 gauge misc 1 ea Miscellaneous AC & HS Qty: 400 RF: 11 (DME) lancing device with lancets [Newman Infiniteuch Delica Lanc Device] Kit 1 ea Miscellaneous AC ans HS Qty: 400 RF: 11 isosorbide mononitrate 60 mg tablet extended release 24 hr 120 mg PO DAILY Qty: 90 RF: 12 methocarbamol [Robaxin-750] 750 mg tablet 750 mg PO BID PRN (Reason: muscle spasm) Qty: 60 RF: 5 furosemide [Lasix] 40 mg tablet 80 mg PO DAILY Qty: 180 RF: 12 tamsulosin [Flomax] 0.4 mg capsule 0.4 mg PO DAILY Qty: 90 RF: 4 hydromorphone 2 mg tablet 2 mg PO BID MDD 2 PRN (Reason: pain) Qty: 60 RF: 0 Vitamin B-6 50 MG capsule 50 mg PO DAILY RF: 0 acetaminophen [Tylenol] 325 MG tablet 325 - 650 mg PO Q4H PRN PRNRF: 0 albuterol sulfate [Ventolin HFA] 60 PUFF/INH HFA aerosol inhaler 2 puff Inhalation Q4H PRNRF: 0 (DME) OptiChamber Advantage 1 EACH spacer 1 ea Miscellaneous DIRECTED RF: 0 lidocaine [Lidoderm] 5 % adhesive patch,medicated 1 patch TP DAILY Qty: 15 RF: 0 senna 8.6 mg capsule 8.6 mg PO QHS Qty: 60 RF: 0 docusate sodium [Colace] 100 mg capsule 100 mg PO BID Qty: 60 RF: 0 Discharge Instructions Additional Instructions: Follow up with your education program specialist tomorrow if your blood pressure remains elevated if you develop worsening shortness of breath, severe chest pain or feel more ill return to the emergency department for reexamination Medical Decision Making 79 yo male with multiple medical problems including ckd, htn who comes in with chief complaint of high blood pressure. He states he was sleeping and woke up and decided to check his BP as he frequently does. He noted it was 200 systolic and so came here. He denies any chest pain/pressure, dyspnea, weakness, numbness, vision changes, abdominal pain, back pain. He has a mild frontal headache which he states is normal for him to get and is not the worse of his life. He has clear lungs, systolic murmur, soft nontender abdomen and nonfocal exam. I discussed with him at length pros and cons of increasing a dose of his med based on an hour of high BP readings and at this time he would like to hold off on adding any additional meds or increasing his dosage and would like to speak with his education program specialist tomorrow. HE does have chronic left foot pain that he states has increased which is likely the cause of this, he has no redness, swelling and no bone tenderness to suggest fx or infectious etiology but the pain could be driving his BP. Advised we could give him a dose of his home dilaudid but he declined as he can take it at home per patient. Given his lack of symptoms do not feel workup at this time indicated. He will f/u with nephrology and return precautions given Differential Diagnosis Differential Diagnosis: hypertension, kidney disease HPI General Mode of arrival: ambulatory . Date/Time Provider Initiated Documentation: 12/09/19 00:01 . Limitations to Documentation: no limitations . Information obtained by: patient . History of Present Illness 79 year old M presents to the emergency department with the chief complaint of high blood pressure, and it has been constant. No relieving factors improve symptom(s), No exacerbating factors reported . Patient did receive the following treatments prior to arrival, none Related Data Home Medications Medication Instructions Recorded Confirmed Vitamin B-6 50 mg PO DAILY 02/24/17 11/19/19 acetaminophen [Tylenol] 325 - 650 mg PO Q4H PRN PRN tab 03/05/17 11/19/19 aspirin 81 mg PO DAILY #100 tab-cap 03/18/17 11/19/19 cyanocobalamin (vitamin B-12) 3,000 mcg SUBLINGUAL DAILY evin 10/15/17 11/19/19 OptiChamber Advantage kit 03/11/18 11/19/19 albuterol sulfate [Ventolin HFA] 2 puff INHALATION Q4H PRN inh 03/11/18 11/19/19 triamcinolone acetonide 0.1 % 1 applic TP BID #80 gm 08/11/18 11/19/19 topical ointment allopurinol 100 mg tablet 100 mg PO BID #180 tab-cap 12/08/18 11/19/19 insulin lispro 100 unit/mL 14 - 20 unit SUB-Q AC & HS #60 ml 01/27/19 11/19/19 subcutaneous pen nitroglycerin 0.4 mg sublingual 0.4 mg SUBLINGUAL PRN #25 tab-cap 03/18/19 11/19/19 tablet pen needle, diabetic 31 gauge x #600 ea 04/23/19 11/19/19 1/3 lidocaine [Lidoderm] 1 patch TP DAILY #15 each 06/20/19 11/19/19 finasteride 5 mg tablet 5 mg PO DAILY #90 tab-cap 06/29/19 11/19/19 gabapentin 600 mg tablet 600 mg PO Q4H #270 tab-cap 06/29/19 11/19/19 hydralazine 25 mg tablet 25 mg PO TID #270 tab-cap 06/29/19 11/19/19 atorvastatin 80 mg tablet 80 mg PO DAILY #90 tab-cap 08/11/19 11/19/19 blood sugar diagnostic #400 strip 08/13/19 11/19/19 isosorbide mononitrate 60 mg 120 mg PO DAILY #90 tab-cap 08/13/19 11/19/19 tablet,extended release 24 hr lancets 33 gauge #400 each 08/13/19 11/19/19 lancing device with lancets #400 kit 08/13/19 11/19/19 docusate sodium [Colace] 100 mg PO BID #60 cap 08/27/19 11/19/19 senna 8.6 mg PO QHS #60 cap 08/27/19 11/19/19 calcitriol 0.25 mcg capsule 0.25 mcg PO .MWF cap 09/01/19 11/19/19 carvedilol 25 mg tablet 25 mg PO BID #180 tab-cap 09/01/19 11/19/19 methocarbamol 750 mg tablet 750 mg PO BID PRN #60 tab 10/01/19 11/19/19 furosemide 40 mg tablet 80 mg PO DAILY #180 tab-cap 11/16/19 11/19/19 tamsulosin 0.4 mg capsule 0.4 mg PO DAILY #90 tab-cap 11/16/19 11/19/19 clonidine HCl 0.1 mg tablet 0.2 mg PO Q6H #360 tab-cap 11/19/19 11/19/19 insulin glargine 100 unit/mL (3 60 unit SUB-Q BID ml 11/19/19 11/19/19 mL) subcutaneous pen losartan 50 mg tablet 50 mg PO DAILY #90 tab 11/19/19 11/19/19 hydromorphone 2 mg tablet 2 mg PO BID PRN #60 tab MDD 2 12/01/19 Previous Rx's Medication Instructions Recorded acetaminophen [Tylenol] 325 - 650 mg PO Q4H PRN PRN tab 03/05/17 OptiChamber Advantage kit 03/11/18 albuterol sulfate [Ventolin HFA] 2 puff INHALATION Q4H PRN inh 03/11/18 triamcinolone acetonide 0.1 % 1 applic TP BID #80 gm 08/11/18 topical ointment allopurinol 100 mg tablet 100 mg PO BID #180 tab-cap 12/08/18 insulin lispro 100 unit/mL 14 - 20 unit SUB-Q AC & HS #60 ml 01/27/19 subcutaneous pen nitroglycerin 0.4 mg sublingual 0.4 mg SUBLINGUAL PRN #25 tab-cap 03/18/19 tablet pen needle, diabetic 31 gauge x #600 ea 04/23/1910/02 lidocaine [Lidoderm] 1 patch TP DAILY #15 each 06/20/19 finasteride 5 mg tablet 5 mg PO DAILY #90 tab-cap 06/29/19 gabapentin 600 mg tablet 600 mg PO Q4H #270 tab-cap 06/29/19 hydralazine 25 mg tablet 25 mg PO TID #270 tab-cap 06/29/19 atorvastatin 80 mg tablet 80 mg PO DAILY #90 tab-cap 08/11/19 blood sugar diagnostic #400 strip 08/13/19 isosorbide mononitrate 60 mg 120 mg PO DAILY #90 tab-cap 08/13/19 tablet,extended release 24 hr lancets 33 gauge #400 each 08/13/19 lancing device with lancets #400 kit 08/13/19 docusate sodium [Colace] 100 mg PO BID #60 cap 08/27/19 senna 8.6 mg PO QHS #60 cap 08/27/19 carvedilol 25 mg tablet 25 mg PO BID #180 tab-cap 09/01/19 methocarbamol 750 mg tablet 750 mg PO BID PRN #60 tab 10/01/19 furosemide 40 mg tablet 80 mg PO DAILY #180 tab-cap 11/16/19 tamsulosin 0.4 mg capsule 0.4 mg PO DAILY #90 tab-cap 11/16/19 clonidine HCl 0.1 mg tablet 0.2 mg PO Q6H #360 tab-cap 11/19/19 losartan 50 mg tablet 50 mg PO DAILY #90 tab 11/19/19 hydromorphone 2 mg tablet 2 mg PO BID PRN #60 tab MDD 2 12/01/19 Allergies Allergy/AdvReac Type Severity Reaction Status Date / Time acyclovir Allergy Severe Unverified 11/19/19 11:04 amlodipine Allergy Severe SOB, Chest Unverified 11/19/19 11:04 Pain niacin Allergy Intermediate HIVES Unverified 11/19/19 11:04 ciprofloxacin Allergy Mild SKIN RASH Unverified 11/19/19 11:04 Tetanus Vaccines and Toxoid Allergy Mild LARGE Unverified 11/19/19 11:04 [Tetanus Vaccines \E&E\ LOCAL Toxoid] REACTION nickel Allergy Unknown Unverified 11/19/19 11:04 indomethacin AdvReac Severe GI DISTRESS Unverified 11/19/19 11:04 General Stated Complaint: GenMedical EVELYN: 3 Review of Systems All systems reviewed & are unremarkable except as noted in HPI and below Constitutional Constitutional: Denies chills, Denies fever(s) and Denies weakness Cardiovascular Cardiovascular: Denies chest pain and Denies dyspnea Respiratory Respiratory: Denies cough and Denies dyspnea Gastrointestinal Gastrointestinal: Denies abdominal pain, Denies nausea and Denies vomiting Musculoskeletal Musculoskeletal: Denies joint swelling Neurologic Neurologic: Denies weakness Psychiatric Psychiatric: Denies depression [facility] Medical History (Updated 12/09/19 @ 00:20 by Cordell Live MD) Actinic keratosis (Chronic) [id number] kidney injury (Inactive) Allergic rhinitis (Chronic) seasonal allergies Anemia (Chronic) mild low Hct; thrombocytopenia; eosinphilia Bilateral pleural effusion (Chronic 07/22/17[place] [facility] [place] CAD (coronary artery disease) (Chronic) S/P STENTING, NO RECURRENT ANGINAL SYMPTOMS WITH NEGATIVE NUCLEAR STRESS TEST 2011, LVEF 53% -12-25-2013 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) CHF (congestive heart failure) (Chronic) Chronic hepatitis (Acute 11/03/12) Chronic pain disorder (Acute 08/30/15) CONTRACT 01/19/16 Chronic renal insufficiency, stage III (moderate) (Chronic 04/16/16) Cirrhosis of liver (Chronic 09/28/13) YAO-RELATED 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) Diabetes mellitus with neuropathy (Chronic 08/17/14) Diabetic polyneuropathy associated with type 2 diabetes mellitus (Chronic 03/05/16) Diabetic retinopathy (Chronic 02/14/15) 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) Esophageal varices without bleeding (Chronic 07/09/13) Frequent nosebleeds (Chronic 10/15/17) Generalized abdominal pain (Inactive 08/29/04) Gout (Chronic 05/20/12) Herpes simplex (Inactive) History of bladder cancer (Acute 10/29/16) Hyperlipidemia (Chronic) Hypermetropia (Chronic 11/24/12) Hypertensive retinopathy (Chronic 11/24/12) Incipient cataract (Chronic 11/24/12) Kidney disease (Chronic) renal insuff.; CREATININE 1.3 Left hip pain (Chronic 12/27/16) Lumbago (Chronic) herniation by MRI; S/P discectomy L5; left leg pain continues/numbness Lumbosacral radiculopathy at L5 (Inactive 05/20/17) Microscopic hematuria (Chronic 10/29/16) Neck pain (Chronic) neck fusion C5-6-7; s/p fall on the ice with significant neck injury, paralysis for a short time; short term memory loss; decreased right arm strength Re-injured 02/13 Non-ST elevation (NSTEMI) myocardial infarction (Inactive 03/09/17) 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) Peripheral edema (Chronic 03/29/16) Polyp of colon (Chronic 08/29/99) hyperplastic polyp; per colonoscopy 2009-Tubular adenoma and hyperplastic polyp Portal hypertensive gastropathy (Chronic 07/09/13) Presbyopia (Chronic 11/24/12) Primary malignant neoplasm of bladder (Resolved 01/20/08) atypical urothelial cells on urine 01/05; S/P 2 OPERATIONS; VCG THERAPY Renal colic on right side (Resolved 12/25/13) Smoker (Inactive) Subdural hematoma (Chronic 02/24/17) Tear film insufficiency (Chronic 11/24/12) Thyroid nodule (Chronic 03/18/17) 1.6cm right Surgical History (Updated 09/01/19 @ 13:08 by Ailyn Ha MD, [place]) ACHILLOTENOTOMY 1988 LEFT 1998 RIGHT Bladder Surgery [address] VÁSQUEZ Cholecystectomy (08/05/12) Colonoscopy - MAC 08/09 DISC SURGERY () L5 EGD - MAC 06[place]29/[place] [facility] [place] [facility] [place] History of bladder surgery (Inactive) History of discectomy (Inactive) History of esophagogastroduodenoscopy (Inactive) History of intravascular stent placement (Inactive) History of spinal fusion (Inactive) Spinal Fusion (~1992) C5, 6-7 Status post cholecystectomy (Inactive) Stent placement (~2007) X [address] JANICE KENDALL Social History Smoking/Tobacco Use Status: Former Tobacco Use Tobacco: How many years used: 29 Drug use: Current Sobriety What type of physical activity do you participate in: none Do you feel safe at home: Yes Do you feel safe in your relationship?: Yes Exam Const General: no acute distress Orientation: alert HENMT Head: normal to inspection Ears: external ears normal General nose exam: external nose normal Mouth: moist mucous membranes Eyes General: appearance normal, both eyes and all related structures Neck Neck: normal visual inspection Resp Effort & Inspection: normal respiratory effort and able to speak in complete sentences Cardio Rate: regular rate Skin General skin exam: no rashes or lesions noted Neuro General: alert and oriented x3 Extrem General: normal capillary refill Psych Mental Status: mental status grossly normal Course Vital Signs Vital signs: Vital Signs Temperature 37.2 C 12/09/19 00:03 Pulse 79 12/09/19 00:03 Respiratory Rate 16 12/09/19 00:03 Blood Pressure 189/59 H 12/09/19 00:03 Pulse Oximetry 98 12/09/19 00:03 Temperature 37.2 C 12/09/19 00:03 Temperature Source Oral 12/09/19 00:03 Pulse 79 12/09/19 00:03 Respiratory Rate 16 12/09/19 00:03 Respiratory Effort Non-Labored 12/09/19 00:14 Blood Pressure 189/59 H 12/09/19 00:03 Blood Pressure Position Sitting 12/09/19 00:03 Pulse Oximetry 98 12/09/19 00:03 Oxygen Delivery Method Room Air 12/09/19 00:03 Oxygen Flow Rate 0 12/09/19 00:03 Pain Level 8 12/09/19 00:03
== END 2019-12-09 00:30 | disposition home or self-care (01) ==
LOC: ER 12-09 00:43
PROVIDERS: Emergency Provider Emergency Medicine; PCP Family Medicine
DX: I12.9 Hypertensive chronic kidney disease with stage 1 through stage 4 chronic kidney disease, or unspecified chronic kidney disease (principal); N18.3 Chronic kidney disease, stage 3 (moderate); E11.22 Type 2 diabetes mellitus with diabetic chronic kidney disease; Z79.4 Long term (current) use of insulin
CPT/HCPCS: 99282

== ENCOUNTER 2020-02-19 04:32 | Outpatient (RCR) | payer MEDICARE, BC, SELFPAY ==
[2020-02-19 13:20] LABS: HCT 27.1 % (40.0-50.0); HGB 9.2 g/dL (13.5-17.5)
[2020-02-19] MEDS: Darbepoetin 40 MCG SYR SC (14:12)
== END 2020-02-28 23:59 | disposition home or self-care (01) ==
LOC: INF 04:32
PROVIDERS: Internal Medicine Nephrology; PCP Family Medicine; Visit Provider Family Medicine
DX: N18.4 Chronic kidney disease, stage 4 (severe) (principal); D63.1 Anemia in chronic kidney disease
CPT/HCPCS: 36415; 96372; 85014; 85018; J0881

== ENCOUNTER 2020-03-22 00:49 | Outpatient (RCR) | payer MEDICARE, BC, SELFPAY ==
[2020-03-08] MEDS: IRON SUCROSE COMPLEX 300 MG in Normal Saline 250 ML 176.667 MG IVPB (13:24)
[2020-03-08] MEDS: Normal Saline Flush 10 ML SYR IVP (13:25)
[2020-03-08 15:48] LABS: Hemoglobin A1C 6.7 % (3.8-5.6)
[2020-03-15] MEDS: Normal Saline Flush 10 ML SYR IVP (13:16)
[2020-03-15 13:28] LABS: HCT 29.1 % (40.0-50.0); HGB 9.6 g/dL (13.5-17.5)
[2020-03-15] MEDS: Darbepoetin 40 MCG SYR SC (13:34)
[2020-03-15] MEDS: IRON SUCROSE COMPLEX 300 MG in Normal Saline 250 ML 176.667 MG IVPB (13:47)
[2020-03-22] MEDS: IRON SUCROSE COMPLEX 300 MG in Normal Saline 250 ML 176.667 MG IVPB (12:13)
[2020-03-22] MEDS: Normal Saline Flush 10 ML SYR IVP (12:13)
== END 2020-03-29 23:59 | disposition home or self-care (01) ==
LOC: INF 00:49
PROVIDERS: PCP Family Medicine; Visit Provider Family Medicine
DX: N18.4 Chronic kidney disease, stage 4 (severe) (principal); D63.1 Anemia in chronic kidney disease; D50.9 Iron deficiency anemia, unspecified
CPT/HCPCS: 36415; 96365; 96366; 96372; 83036; 85014; 85018; J0881; J1756

== ENCOUNTER 2020-04-13 00:59 | Outpatient (RCR) | payer MEDICARE, BC, SELFPAY ==
[2020-04-13 13:15] LABS: HCT 29.9 % (40.0-50.0); HGB 10.1 g/dL (13.5-17.5)
[2020-04-13] MEDS: Darbepoetin 40 MCG SYR SC (13:29)
== END 2020-04-29 23:59 | disposition home or self-care (01) ==
LOC: INF 00:59
PROVIDERS: PCP Family Medicine; Visit Provider Family Medicine
DX: N18.4 Chronic kidney disease, stage 4 (severe) (principal); D63.1 Anemia in chronic kidney disease
CPT/HCPCS: 36415; 96372; 85014; 85018; J0881

== ENCOUNTER 2020-05-11 02:23 | Outpatient (RCR) | payer MEDICARE, BC, SELFPAY ==
[2020-05-11 12:54] LABS: HCT 30.3 % (40.0-50.0); HGB 10.1 g/dL (13.5-17.5)
[2020-05-11] MEDS: Darbepoetin 40 MCG SYR SC (13:02)
== END 2020-05-30 23:59 | disposition home or self-care (01) ==
LOC: INF 02:23
PROVIDERS: Internal Medicine Nephrology; PCP Family Medicine; Visit Provider Family Medicine
DX: N18.4 Chronic kidney disease, stage 4 (severe) (principal); D63.1 Anemia in chronic kidney disease
CPT/HCPCS: 36415; 96372; 85014; 85018; J0881

== ENCOUNTER 2020-06-13 11:30 | Outpatient (RCR) | payer MEDICARE, BC, SELFPAY ==
[2020-06-13 11:46] LABS: HCT 31.3 % (40.0-50.0); HGB 10.4 g/dL (13.5-17.5)
[2020-06-13] MEDS: Darbepoetin 40 MCG SYR SC (12:01)
[2020-06-13 12:11] LABS: Ferritin 550 ng/mL (26-388)
[2020-06-13 12:13] LABS: Iron 70 ug/dL (65-175); Total Iron Binding Capacity 247 ug/dL (250-450); Transferrin Sat 28 % (20-55)
== END 2020-06-29 23:59 | disposition home or self-care (01) ==
LOC: INF 11:30
PROVIDERS: Internal Medicine Nephrology; PCP Family Medicine; Visit Provider Family Medicine
DX: N18.4 Chronic kidney disease, stage 4 (severe) (principal); D63.1 Anemia in chronic kidney disease
CPT/HCPCS: 36415; 96372; 82728; 83540; 83550; 85014; 85018; J0881

== ENCOUNTER 2020-07-11 11:30 | Outpatient (RCR) | payer MEDICARE, BC, SELFPAY ==
[2020-07-11 11:48] LABS: HCT 29.6 % (40.0-50.0)
[2020-07-11] MEDS: Darbepoetin 40 MCG SYR SC (12:03)
== END 2020-07-30 23:59 | disposition home or self-care (01) ==
LOC: INF 11:30
PROVIDERS: PCP Family Medicine; Visit Provider Family Medicine
DX: N18.4 Chronic kidney disease, stage 4 (severe) (principal); D63.1 Anemia in chronic kidney disease
CPT/HCPCS: 36415; 96372; 85014; 85018; J0881

== ENCOUNTER 2020-08-08 11:30 | Outpatient (RCR) | payer MEDICARE, BC, SELFPAY ==
[2020-08-08 12:18] LABS: HCT 28.8 % (40.0-50.0)
[2020-08-08] MEDS: Darbepoetin 40 MCG SYR SC (12:25)
== END 2020-08-29 23:59 | disposition home or self-care (01) ==
LOC: INF 11:30
PROVIDERS: Internal Medicine Nephrology; PCP Family Medicine; Visit Provider Family Medicine
DX: N18.4 Chronic kidney disease, stage 4 (severe) (principal); D63.1 Anemia in chronic kidney disease; E11.43 Type 2 diabetes mellitus with diabetic autonomic (poly)neuropathy
CPT/HCPCS: 36415; 96372; 85014; 85018; J0881

== ENCOUNTER 2020-09-05 11:30 | Outpatient (RCR) | payer MEDICARE, BC, SELFPAY ==
[2020-09-05 11:47] LABS: Abs Immature Grans 0.03 10^3/uL (0.0-0.06); Absolute Basophil Count 0.03 10^3/uL (0.0-0.2); Absolute Eosinophil Count 0.16 10^3/uL (0.0-0.7); Absolute Lymphocyte Count 1.06 10^3/uL (1.2-3.4); Absolute Monocyte Count 0.44 10^3/uL (0.1-0.8); Absolute Neutrophil Count 3.54 10^3/uL (1.2-6.7); Basophils % 0.6; HCT 30.8 % (40.0-50.0); HGB 10.3 g/dL (13.5-17.5); Immature Grans % 0.6; Lymphocytes % 20.2; MCH 30.1 pg (27.0-33.0); MCHC 33.4 % (32.0-36.0); MCV 90.1 fL (80-95); MPV 10.7 fL (8.0-11.0); Monocytes % 8.4; Neutrophils % 67.2; Nucleated RBC 0 %; Platelet Count 102 10^3/uL (130-400); RBC 3.42 10^6/uL (4.36-5.78); RDW 15.1 % (11.8-14.1); WBC 5.26 10^3/uL (4.4-10.8)
[2020-09-05 12:06] LABS: Hemoglobin A1C 6.2 % (<5.7)
[2020-09-05 12:19] LABS: Iron 49 ug/dL (65-175); Total Iron Binding Capacity 243 ug/dL (250-450); Transferrin Sat 20 % (20-55)
[2020-09-05 12:25] LABS: ALT 29 U/L (16-63); AST 21 U/L (15-37); Albumin 3.6 g/dL (3.4-5.0); Alkaline Phosphatase 95 U/L (46-116); Anion Gap 6.3 mmol/L (3-11); BUN 66 mg/dL (7-18); Bilirubin, Total 0.6 mg/dL (0.2-1.0); CO2 28.7 mmol/L (21.0-32.0); Calcium 8.9 mg/dL (8.5-10.1); Chloride 103 mmol/L (98-107); Estimated GFR 13.08 (mL/min/1.73m2); Ferritin 674 ng/mL (26-388); Glucose 168 mg/dL (74-106); Potassium 4.9 mmol/L (3.5-5.1); Sodium 138 mmol/L (136-145); Vitamin B12 635 pg/mL (193-986)
[2020-09-05 12:31] LABS: CREATININE 4.38 mg/dL (0.70-1.30)
== END 2020-09-14 23:59 | disposition home or self-care (01) ==
LOC: INF 11:30
PROVIDERS: PCP Family Medicine; Visit Provider Family Medicine
DX: N18.4 Chronic kidney disease, stage 4 (severe) (principal); D63.1 Anemia in chronic kidney disease
CPT/HCPCS: 36415; 80053; 82607; 82728; 83036; 83540; 83550; 85025

== ENCOUNTER 2020-09-09 04:52 | Outpatient (CLI) | payer MEDICARE, BC, SELFPAY ==
[2020-09-09 12:08] LABS: Abs Immature Grans 0.03 10^3/uL (0.0-0.06); Absolute Basophil Count 0.03 10^3/uL (0.0-0.2); Absolute Eosinophil Count 0.15 10^3/uL (0.0-0.7); Absolute Monocyte Count 0.39 10^3/uL (0.1-0.8); Absolute Neutrophil Count 5.16 10^3/uL (1.2-6.7); Basophils % 0.5; Eosinophils % 2.3; HCT 31.7 % (40.0-50.0); Immature Grans % 0.5; Lymphocytes % 13.5; MCH 30.2 pg (27.0-33.0); MCHC 34.7 % (32.0-36.0); MCV 87.1 fL (80-95); MPV 10.4 fL (8.0-11.0); Monocytes % 5.9; Neutrophils % 77.3; Nucleated RBC 0 %; Platelet Count 100 10^3/uL (130-400); RBC 3.64 10^6/uL (4.36-5.78); RDW 15.2 % (11.8-14.1); RDW-SD 47.8 fL; WBC 6.66 10^3/uL (4.4-10.8)
[2020-09-09 12:22] LABS: Hemoglobin A1C 6.3 % (<5.7)
[2020-09-09 12:54] LABS: ALT 33 U/L (16-63); AST 18 U/L (15-37); Albumin 3.8 g/dL (3.4-5.0); Alkaline Phosphatase 115 U/L (46-116); Anion Gap 11.4 mmol/L (3-11); BUN 59 mg/dL (7-18); Bilirubin, Total 0.7 mg/dL (0.2-1.0); CO2 26.6 mmol/L (21.0-32.0); Calcium 8.9 mg/dL (8.5-10.1); Chloride 104 mmol/L (98-107); Estimated GFR 14.73 (mL/min/1.73m2); Glucose 165 mg/dL (74-106); PHOSPHORUS 5.2 mg/dL (2.6-4.7); Potassium 4.9 mmol/L (3.5-5.1); Sodium 142 mmol/L (136-145); Total Protein 6.8 g/dL (6.4-8.2)
[2020-09-09 13:00] LABS: CREATININE 3.95 mg/dL (0.70-1.30)
== END 2020-09-09 05:12 ==
PROVIDERS: PCP Family Medicine; Visit Provider Family Medicine
DX: E11.9 Type 2 diabetes mellitus without complications (principal); N28.9 Disorder of kidney and ureter, unspecified
CPT/HCPCS: 36415; 80053; 83036; 84100; 85025